=== PATIENT | male | born 1960 | race Caucasian/White ===

== ENCOUNTER 2016-02-27 18:56 | Inpatient (IN) | payer MEDICARE ==
[~2016-02-27] VITALS: Ht 195.6 cm; Wt 88.0 kg
[~2016-02-27 18:56] MED LIST: FLUO40CA PO; NICO14PA TD; OLAN15TA PO; TRAZ10TA PO
[2016-02-27] MEDS ORDERED: OLANZapine 5 MG TAB As Ordered ONE (19:37)
[2016-02-27 20:06] LABS: MEAN CORPUSCULAR HEMOGLOBIN 33.2 pg (27.0-33.0); MEAN CORPUSCULAR HGB CONC 34.5 g/dl (32.0-36.5); MEAN CORPUSCULAR VOLUME 96.3 fl (80.0-96.0); RED CELL DISTRIBUTION WIDTH 12.6 % (11.5-14.5); WHITE BLOOD COUNT 7.3 K/mm3 (4.0-10.0)
[2016-02-27 20:35] LABS: ALBUMIN 4.2 GM/DL (3.2-5.2); ALBUMIN/GLOBULIN RATIO 1.56 (1.00-1.93); ALKALINE PHOSPHATASE 83 U/L (45-117); ALT/SGPT 19 U/L (12-78); ANION GAP 9 MEQ/L (8-16); AST/SGOT 9 U/L (15-37); BILIRUBIN,DIRECT 0.1 MG/DL (0.0-0.2); BILIRUBIN,TOTAL 0.5 MG/DL (0.2-1.0); BLOOD UREA NITROGEN 13 MG/DL (7-18); CALCIUM LEVEL 9.9 MG/DL (8.5-10.1); CARBON DIOXIDE LEVEL 29 MEQ/L (21-32); CHLORIDE LEVEL 106 MEQ/L (98-107); CREATININE FOR GFR 1.14 MG/DL (0.70-1.30); GLOMERULAR FILTRATION RATE > 60.0 (>56); GLUCOSE, FASTING 87 MG/DL (70-105); SODIUM LEVEL 144 MEQ/L (136-145); TOTAL PROTEIN 6.9 GM/DL (6.4-8.2)
[2016-02-27 20:37] LABS: AMPHETAMINES LEVEL URINE POSITIVE (NEGATIVE); BENZODIAZEPINES URINE NEGATIVE (NEGATIVE); COCAINE METABOLITE URINE NEGATIVE (NEGATIVE); CONTROL LINE INT CTR LINE PRESENT; METHADONE URINE NEGATIVE (NEGATIVE); OPIATES URINE NEGATIVE (NEGATIVE); TRICYCLIC ANTIDEPRESS URINE NEGATIVE (NEGATIVE)
[2016-02-27] MEDS ORDERED: VITA400C2 PO (21:08)
[2016-02-27] MEDS ORDERED: TRAZ100T4 PO (21:08)
[2016-02-27] MEDS ORDERED: OLAN15TA PO (21:08)
[2016-02-27] MEDS ORDERED: PROZ40CA PO (21:08)
--- NOTE | 2016-02-27 21:10 | EDDOCDS ---
Physician Documentation [facility] Name: Carlos Dunlap Age: 55 yrs Sex: Male : 1960 Arrival Date: 02/27/2016 Time: 18:56 Bed OBSERVATION Private MD: No Pcp Disposition: 02/27/16 20:48 Hospitalization ordered by Sajan Peoples for Inpatient Admission. Preliminary diagnosis are Bipolar disorder, current episode hypomanic, Adverse effect of amphetamines. - Bed requested for Admit. - Status is Inpatient Admission. slm - Condition is Stable. - Problem is chronic. - Symptoms have improved. Historical: - Allergies: PENICILLINS (Hives); - Home Meds: 1. Zyprexa 30 mg at HS Oral tab (Last dose: 02/26/2016 20:00) 2. Prozac 40 mg Oral cap 1 cap once daily (Last dose: 02/27/2016 08:00) 3. trazodone 100 mg Oral tab 1 tab (Last dose: 02/26/2016 20:00) - PMHx: Bipolar disorder; Anxiety Disorder; OCD; - PSHx: Hernia repair; Cholecystectomy; - Social history: Smoking status: Patient uses tobacco products, current every day smoker. No barriers to communication noted, The patient speaks fluent Bahamian, Speaks appropriately for age, Preferred Language: Bahamian. - Family history: Not pertinent. - : The pt / caregiver states he / she is not on anticoagulants. Home medication list is obtained from the patient. - Exposure Risk Screening:: None identified. Vital Signs: 02/26 18:57 BP 161 / 73; Pulse 81; Resp 18 S; Temp 97.6(O); Pulse Ox 98% on R/A; Weight 88.45 kg / gr2 195 lbs (R); Height 6 ft. 1 in. (185.42 cm) (R); Pain 2/10; 21:02 BP 109 / 61; Pulse 67; Resp 18; Temp 97.1(O); Pulse Ox 98% ; Pain 7/10; cmb 18:57 Body Mass Index 25.73 (88.45 kg, 185.42 cm) gr2 MDM: 19:30 OLANZapine 10 mg PO now ordered. cs11 19:30 Consult PFS/PSA/Pipefitter ordered. cs11 19:30 Consult PFS/PSA/Pipefitter: Patient's case requires discussion with on-call cs11 Psychiatrist ordered. 19:30 PSA/PFS to call Nursing Salesperson [employer], to enter patient data on [place] Safe Act if patient cs11 involuntarily admitted or transferred for SI or HI ordered. 19:30 Confirm accurate psychiatric medication list and times of last dosage ordered. cs11 19:30 Detain Pt Until Medically/PFS Cleared ordered. cs11 19:32 Acetaminophen Level Ordered. EDMS 19:32 Basic Metabolic Profile Ordered. EDMS 19:32 Complete Blood Count Ordered. EDMS 19:32 Drug Eval Toxicology ED Only Ordered. EDMS 19:32 Ethyl Alcohol (ethanol) Ordered. EDMS 19:32 Liver Profile Ordered. EDMS 19:32 Salicylate Level Ordered. EDMS 19:32 Thyroid Stimulating Hormone Ordered. EDMS 20:17 Financial registration complete. mpb 20:19 [facility] Payment Agreement was scanned into [employer] and attached to record. mpb 20:38 Consult PFS/PSA/Pipefitter complete. cl 20:38 Consult PFS/PSA/Pipefitter: Patient's case requires discussion with on-call cl Psychiatrist complete. 20:38 PSA/PFS to call Nursing Salesperson [employer], to enter patient data [place] Safe [place] if patient cl involuntarily admitted or transferred for SI or HI complete. 20:48 Acetaminophen Level Reviewed. cs11 20:48 Complete Blood Count Reviewed. cs11 20:48 Drug Eval Toxicology ED Only Reviewed. cs11 20:48 Liver Profile Reviewed. cs11 20:48 Salicylate Level Reviewed. cs11 20:48 Basic Metabolic Profile Reviewed. cs11 20:48 Ethyl Alcohol (ethanol) Reviewed. cs11 20:48 Thyroid Stimulating Hormone Reviewed. cs11 20:49 BED REQUEST+ADM ordered. EDMS 20:53 Admit to [facility]: ordered. EDMS 20:56 [facility] Legal paperwork was scanned into [employer] and attached to record. ml4 Administered Medications: 19:46 Drug: OLANZapine 10 mg [olanzapine 5 mg tablet (2 tabs)] Route: PO; slm 21:00 Follow up: Response: Anxiety is improved sl Signatures: Dispatcher [employer] EDMS Antwon Perez, PSA PSA cl Serene Sifuentes, PSA PSA ml4 Anuja CrowleyRN RN lf1 Gigi Rondon, DO DO cs11 Hathaway,DbebieBRIANA hare LPN, Michael, Reg Reg mpb The chart was reviewed and I authenticate all verbal orders and agree with the evaluation and treatment provided.Attachments: 20:19 [facility] Payment Agreement mpb MTDD
--- NOTE | 2016-02-27 21:10 | EDDOCDS ---
Nurse's Notes [facility] Name: Carlos Dunlap Age: 55 yrs Sex: Male : 1960 Arrival Date: 02/27/2016 Time: 18:56 Bed OBSERVATION Private MD: No Pcp Diagnosis: Bipolar disorder, current episode hypomanic;Adverse effect of amphetamines Presentation: 02/26 19:05 Red Flag criteria, patient assessed and taken directly to a bed. Pt. taken directly to [facility] P2 with family member . Pt reports Depression and thoughts of hurting himself with recent psych admission. 19:14 Presenting complaint: Patient states: Pt reports Bipolar illness history and is lf1 "feeling very inside" states he feels "I wish I would in my sleep" . Refuses to answer when asked if he has plans to harm himself but states "I just wish the Lord would take me in my sleep". Denies HI. Mental Health Triage Level: Level 2: The patient displays active suicidal ideations. Adult Sepsis Screening: Patient has new or worsening altered mentation (1 point). Patient's respiratory rate is less than 22. Systolic blood pressure is greater than 100. Patient has a qSOFA score of 1- Negative Sepsis Screen. Mental Health Triage Level: Level 2: The patient displays active suicidal ideations. Suicide/Homicide risk assessment- The patient admits to and/or has been reported to be having suicidal ideations. Patient denies SI and HI but presents with another emotional, behavioral or other mental health complaint. The patient reports that he/she has been admitted to an inpatient mental health facility in the last 30 days. Status: Patient is not a vp client services or dependent. Transition of care: patient was not received from another setting of care. 19:14 Acuity: PHYLLIS Level 3 lf1 19:14 Method Of Arrival: Walkin/Carried/Asstd lf1 Triage Assessment: 19:14 General: Appears in no apparent distress, comfortable, Behavior is cooperative. Pain: lf1 Location: headache and lower neck pain Pain currently is 10 out of 10 on a pain scale. HIV screening NA for this visit Offered previously. Neurological: Level of Consciousness is awake, alert, Oriented to person, place, time, Moves all extremities. Gait is steady, Speech is normal, Facial symmetry appears normal. EENT: No deficits noted. Cardiovascular: Chest pain is denied. Respiratory: Respiratory effort is even, unlabored, Respiratory pattern is regular, Breath sounds are clear bilaterally. GI: Reports constipation, diarrhea, Denies nausea, vomiting. 19:30 : No deficits noted. Derm: No deficits noted. lf1 Historical: - Allergies: PENICILLINS (Hives); - Home Meds: 1. Zyprexa 30 mg at HS Oral tab (Last dose: 02/26/2016 20:00) 2. Prozac 40 mg Oral cap 1 cap once daily (Last dose: 02/27/2016 08:00) 3. trazodone 100 mg Oral tab 1 tab (Last dose: 02/26/2016 20:00) - PMHx: Bipolar disorder; Anxiety Disorder; OCD; - PSHx: Hernia repair; Cholecystectomy; - Social history: Smoking status: Patient uses tobacco products, current every day smoker. No barriers to communication noted, The patient speaks fluent Belarusian, Speaks appropriately for age, Preferred Language: Belarusian. - Family history: Not pertinent. - : The pt / caregiver states he / she is not on anticoagulants. Home medication list is obtained from the patient. - Exposure Risk Screening:: None identified. Screenin:30 Screening information is obtained from the patient. Fall risk: No risks identified. lf1 Assistance ADL's: requires no assistance with activities of daily living. Abuse/DV Screen: The patient / caregiver reports he/she is: not in a situation that causes fear, pain or injury. Nutritional screening: No deficits noted. Advance Directives: Currently, there is no health care proxy. home support is inadequate. Assessment: 19:31 General: Pt reports that he is physically able to to take care of himself but feels lf1 that he no longer has the will to do so. . 19:54 General: Appears in no apparent distress, comfortable, Behavior is appropriate for age, slm cooperative. General: security observing . Respiratory: Airway is patent Respiratory effort is even, unlabored. Derm: Skin is intact, Skin is pink, warm & dry. 20:46 General: Appears in no apparent distress, comfortable, Behavior is appropriate for age, slm cooperative, pleasant. General: pt sitting on stretcher security observing . Respiratory: Airway is patent Respiratory effort is even, unlabored. 20:59 General: Appears in no apparent distress, comfortable, Behavior is appropriate for age, slm cooperative, pleasant. Pain: Denies pain. Respiratory: Airway is patent Respiratory effort is even, unlabored. Mental Health Eval: 19:15 Status: The patient is not a vp client services or dependent. Referral cl Information: Evaluation referral is generated by the patient himself / herself. The patient was referred for evaluation because Pt with hx of Bipolar d/o and recent psych admissions to [facility], returns tonight c/o anxiety/depression, thoughts of self harm, pt.'s brother brought him to ED.. Mental Health history: anxiety, Bipolar Disorder, depression, suicide ideation ideation Mental Health Admissions: Several to [facility]. in past, most recently [facility] 02/03/16-02/17/16. Current living environment is The patient currently lives alone. 19:49 [facility] Behavioral Health: The patient is established as a patient of [facility] Behavioral cl Health. Subjective: The patients chief complaint is Pt reports worsening depression/anxiety since being d/c'd from [facility] 02/17/16, has hx of Bipolar d/o and feels unable to care for self, feeling hopeless/helpless, asked his brother to bring him to ED. Pt was to have his first appt. at [facility] today, states he called to cancel because he felt the need to come to ED for psych admission. Pt appears disheveled/unkempt, is calm and cooperative, feels he is "collapsing", adds "I don't have the desire or determination to live anymore, and it scares the hell out of me". Pt reports sleep/appetite/energy/concentration px, has no motivation, states "I just don't care anymore". Pt denies HI/AH/VH, denies any substance abuse, reports compliance with medications. Pt has multiple prior psych admissions [facility] moved to area several months ago, currently lives alone. Pt denies any suicidal plan, continues to voice passive SI, states "I wish the Lord would just take me in my sleep".. Delusions are denied. Patient's mood is anxious, dysthymic, Hallucinations are denied. Patient presents to Emergency Department with the following symptoms within the past 2 weeks: anxiety, decreased appetite, depressed mood, feelings of helplessness/hopelessness, poor concentration, sleep disturbance - erratic suicidal ideation with no plan. Substance abuse: Pt denies. Mental status exam: Patients appearance is disheveled unkempt, Patient's behavior is cooperative, Speech is normal. Affect is appropriate. Mood is dysthymic Hallucinations are denied. Appetite is erratic Memory is good. Energy level is tires easily. Content of thought is depressive. depressive Thought process is intact. Cognitive level is oriented to person, place, time and situation Patient's insight is fair. Judgement is fair. Rapport with interviewer is good. Suicidal Ideation is present with no specific plan. Homicidal ideation is not present. 20:39 Disposition: Medically cleared for disposition by Gigi Rondon DO Psychiatric Consult cl is performed by phone with Dr Sajan Peoples. 21:01 [facility] Admission Criteria: The patient is experiencing suicidal ideation. The patient cl displays symptoms of severe psychiatric disorder resulting in disordered behavior and significant interference with his / her ability to maintain self care. Severe Anxiety. The patient requires continuous observation and/or control to protect self, others or property. The patient's care requires a multi-modal treatment plan under close supervision and coordination due to the complexity and severity of the patient's symptoms. Legal Status: Patient's legal status will be Emergency admission: 39. Plan B Labs Safe Act: [place] Safe Act is not applicable because patient was registered less than 6 months ago. DSM-V Differential Diagnosis: Bipolar I Disorder (F31.0) Current or most recent episode depressed. Insurance Pre-Certification: Not Required, Medicare. Family Notification: Notification to family of patient status is not currently needed or appropriate. Awaiting: transfer to [facility]. Vital Signs: 18:57 BP 161 / 73; Pulse 81; Resp 18 S; Temp 97.6(O); Pulse Ox 98% on R/A; Weight 88.45 kg gr2 (R); Height 6 ft. 1 in. (185.42 cm) (R); Pain 2/10; 21:02 BP 109 / 61; Pulse 67; Resp 18; Temp 97.1(O); Pulse Ox 98% ; Pain 7/10; cmb 18:57 Body Mass Index 25.73 (88.45 kg, 185.42 cm) gr2 Vitals: 18:57 Log In Time: February 27, 2016 at 18:57. RN notified that patient meets Red Flag gr2 criteria. ED Course: 18:57 Patient visited by Amee Hadley. gr2 18:57 No Pcp is Private Physician. gr2 18:57 Patient moved to Waiting gr2 18:59 Patient visited by Amee Hadley. gr2 18:59 Patient moved to Pre RCE gr2 19:02 Patient moved to BHU2 gr2 19:03 Gigi Rondon DO is Attending Physician. cs11 19:03 Patient visited by Gigi Rondon DO. cs11 19:04 Patient visited by Katie Melchor. cmb 19:20 Triage Initiated lf1 19:30 Patient moved to OBSERVATION cs11 19:31 Patient visited by Anuja Crowley RN. lf1 19:39 Patient visited by Katie Melchor. cmb 19:46 Debbie Hathaway LPN is Primary Nurse. slm 19:53 No IV's were initiated during this patient's visit. No procedures done that require slm assistance. Labs drawn. (by ED staff). Sent per order to lab. Urine collected. Urine specimen sent to lab. 19:54 Patient visited by Debbie Hathaway LPN. slm 20:06 Patient visited by Katie Melchor. cmb 20:19 Patient name changed from Carlos\\S\\\\S\\Germán\\S\\ to Carlos\\S\\ \\S\\Germán. EDMS 20:19 [facility] Payment Agreement was scanned into [employer] and attached to record. mpb 20:26 Patient visited by Debbie Hathaway LPN. slm 20:34 Patient visited by Katie Melchor. cmb 20:47 Patient visited by Debbie Hathaway LPN. slm 20:47 Patient visited by Katie Melchor. cmb 20:47 Sajna Peoples is Hospitalizing Provider. cs11 20:54 Patient visited by Katie Melchor. cmb 20:56 E Legal paperwork was scanned into [employer] and attached to record. ml4 21:02 Patient visited by Katie Melchor. cmb 21:07 Patient visited by Debbie Hathaway LPN. slm 21:07 The patient / caregiver is instructed regarding the plan of care and ED course. Patient slm has correct armband on for positive identification. Placed in psych safe attire. Bed in low position. Security observing. Administered Medications: 19:46 Drug: OLANZapine 10 mg [olanzapine 5 mg tablet (2 tabs)] Route: PO; slm 21:00 Follow up: Response: Anxiety is improved [facility] Attachments: 20:56 [facility] Legal paperwork ml4 Order Results: Lab Order: Acetaminophen Level; SPEC'M 02/27/16 19:52 Test: ACETAMINOPHEN LEVEL; Value: < 2.0; Range: 10.0-30.0; Abnormal: Below low normal; Units: UG/ML; Status: F Lab Order: Basic Metabolic Profile; SPEC'M 02/27/16 19:52 Test: GLUCOSE, FASTING; Value: 87; Range: 70-105; Units: MG/DL; Status: F Test: BLOOD UREA NITROGEN; Value: 13; Range: 7-18; Units: MG/DL; Status: F Test: CREATININE FOR GFR; Value: 1.14; Range: 0.70-1.30; Units: MG/DL; Status: F Test: GLOMERULAR FILTRATION RATE; Value: > 60.0; Range: >56; Status: F Test: SODIUM LEVEL; Value: 144; Range: 136-145; Units: MEQ/L; Status: F Test: POTASSIUM SERUM; Value: 4.0; Range: 3.5-5.1; Units: MEQ/L; Status: F Test: CHLORIDE LEVEL; Value: 106; Range: 98-107; Units: MEQ/L; Status: F Test: CARBON DIOXIDE LEVEL; Value: 29; Range: 21-32; Units: MEQ/L; Status: F Test: ANION GAP; Value: 9; Range: 8-16; Units: MEQ/L; Status: F Test: CALCIUM LEVEL; Value: 9.9; Range: 8.5-10.1; Units: MG/DL; Status: F Test Note: ; Units are mL/min/1.73 m2 Chronic Kidney Disease Staging per NKF: Stage I & II GFR >=60 Normal to Mildly Decreased Stage III GFR 30-59 Moderately Decreased Stage IV GFR 15-29 Severely Decreased Stage V GFR <15 Very Little GFR Left ESRD GFR <15 on DOPER Lab Order: Complete Blood Count; SPEC'M 02/27/16 19:52 Test: WHITE BLOOD COUNT; Value: 7.3; Range: 4.0-10.0; Units: K/mm3; Status: F Test: RED BLOOD COUNT; Value: 4.56; Range: 4.30-6.10; Units: M/mm3; Status: F Test: HEMOGLOBIN; Value: 15.1; Range: 14.0-18.0; Units: g/dl; Status: F Test: HEMATOCRIT; Value: 43.9; Range: 42.0-52.0; Units: %; Status: F Test: MEAN CORPUSCULAR VOLUME; Value: 96.3; Range: 80.0-96.0; Abnormal: Above high normal; Units: fl; Status: F Test: MEAN CORPUSCULAR HEMOGLOBIN; Value: 33.2; Range: 27.0-33.0; Abnormal: Above high normal; Units: pg; Status: F Test: MEAN CORPUSCULAR HGB CONC; Value: 34.5; Range: 32.0-36.5; Units: g/dl; Status: F Test: RED CELL DISTRIBUTION WIDTH; Value: 12.6; Range: 11.5-14.5; Units: %; Status: F Test: PLATELET COUNT, AUTOMATED; Value: 195; Range: 150-450; Units: k/mm3; Status: F Lab Order: Drug Eval Toxicology ED Only; SPEC'M 02/27/16 19:52 Test: AMPHETAMINES LEVEL URINE; Value: POSITIVE; Range: NEGATIVE; Abnormal: Above high normal; Status: F Test: BARBITURATES URINE; Value: NEGATIVE; Range: NEGATIVE; Status: F Test: BENZODIAZEPINES URINE; Value: NEGATIVE; Range: NEGATIVE; Status: F Test: CANNABINOIDS URINE; Value: NEGATIVE; Range: NEGATIVE; Status: F Test: COCAINE METABOLITE URINE; Value: NEGATIVE; Range: NEGATIVE; Status: F Test: METHADONE URINE; Value: NEGATIVE; Range: NEGATIVE; Status: F Test: OPIATES URINE; Value: NEGATIVE; Range: NEGATIVE; Status: F Test: TRICYCLIC ANTIDEPRESS URINE; Value: NEGATIVE; Range: NEGATIVE; Status: F Test Note: ; ALL PRESUMPTIVE POSITIVE FINDINGS ARE UNCONFIRMED NORMAL VALUES THRESHOLD IN NG/ML AMPHETAMINES 1000 METHAMPHETAMINES 1000 BARBITURATES 300 BENZODIAZEPINES 300 CANNABINOIDS (THC) 50 COCAINE METABOLITE 300 METHADONE 300 OPIATES 300 PHENCYCLIDINE 25 TRICYCLIC ANTIDEPRESSANTS 1000 RESULTS ARE FOR MEDICAL PURPOSES ONLY. ALL URINE SPECIMENS WILL BE SAVED FOR 3 DAYS. IF CONFIRMATION OF A PRESUMPTIVE POSTIVE SCREEN RESULT IS DESIRED, CALL CHEMISTRY ([phone]) AND REQUEST URINE TO BE SENT TO REFERENCE LAB. FOR A LIST OF CLOSELY RELATED COMPOUNDS PLEASE CALL THE LAB. Lab Order: Ethyl Alcohol (ethanol); SPEC'M 02/27/16 19:52 Test: ETHYL ALCOHOL (ETHANOL); Value: 0.003; Range: 0.000-0.010; Units: %; Status: F Lab Order: Liver Profile; SPEC'M 02/27/16 19:52 Test: AST/SGOT; Value: 9; Range: 15-37; Abnormal: Below low normal; Units: U/L; Status: F Test: ALT/SGPT; Value: 19; Range: 12-78; Units: U/L; Status: F Test: ALKALINE PHOSPHATASE; Value: 83; Range: 45-117; Units: U/L; Status: F Test: BILIRUBIN,TOTAL; Value: 0.5; Range: 0.2-1.0; Units: MG/DL; Status: F Test: BILIRUBIN,DIRECT; Value: 0.1; Range: 0.0-0.2; Units: MG/DL; Status: F Test: TOTAL PROTEIN; Value: 6.9; Range: 6.4-8.2; Units: GM/DL; Status: F Test: ALBUMIN; Value: 4.2; Range: 3.2-5.2; Units: GM/DL; Status: F Test: ALBUMIN/GLOBULIN RATIO; Value: 1.56; Range: 1.00-1.93; Status: F Lab Order: Salicylate Level; SPEC'M 02/27/16 19:52 Test: SALICYLATE LEVEL; Value: 3.2; Range: 5.0-30.0; Abnormal: Below low normal; Units: MG/DL; Status: F Lab Order: Thyroid Stimulating Hormone; SPEC'M 02/27/16 19:52 Test: THYROID STIMULATING HORMONE; Value: 0.515; Range: 0.358-3.740; Units: uIU/ML; Status: F Outcome: 20:48 Decision to Hospitalize by Provider. cs11 21:06 Discharge Assessment: Patient awake, alert and oriented x 3. No cognitive and/or slm functional deficits noted. Patient verbalized understanding of disposition instructions. patient administered narcotics - no. The following High Risk Discharge criteria are identified: None. Admitted to Psych accompanied by tech, via wheelchair, with chart. Condition: stable. No special radiology studies were completed. Property removed, inventory done, secured in belongings bag- placed in locked locker. 21:08 Patient left the ED. slm Signatures: Dispatcher [employer] EDMS Antwon Perez, PSA PSA cl Serene Sifuentes, PSA PSA ml4 nAuja Crowley,RN RN lf1 Katie Melchor cmGigi Kim, DO cs11 Amee Hadley gr2 Debbie Hathaway,BRIANA SOCIOLOGY PROFESSOR slm Omer Hernandez, Reg Reg mpb STEVE
[2016-02-27 21:19] VITALS: BP 155/73
[2016-02-27] MEDS ORDERED: MOM 30ML SUSPENSION UDC PO PRN (21:45)
[2016-02-27] MEDS ORDERED: ACETAMINOPHEN TAB 650MG DOSE (2X325MG) PO PRN (21:45)
[2016-02-27] MEDS ORDERED: MAALOX 30 ML SUSP *UDC PO PRN (21:45)
[2016-02-28] MEDS: FLUoxetine 20 MG CAP PO SCH (08:41)
--- NOTE | 2016-02-28 11:01 | HPEPDOC ---
Medical History and Physical Date of Admission Feb 27, 2016 at 20:14 History and Physical PCP: [facility] ATTENDING: Dr. Gio Virgen HPI: 55yoM admitted to [facility] for Bipolar Disorder, being medically examined today. No acute medical complaints today. Denies any fevers, chills, weakness, fatigue, VIERA, CP, SOB, cough, palpitations, abdominal pain, N/V/D or changes in bowel or bladder habits. PMHx: Anxiety/depression Bipolar disorder PSHX: Cholecystectomy Bilateral hernia repair SOCHX: Resides in: [place] Marital Status: Kids: 2 Employment: Disabled Tobacco use: pipe daily on and off. ETOH: 3-12 packs per month Illicit Drugs: Denies IV Drug Use: Denies Tattoos done unprofessionally: Denies FAMHX: Mother: , [place] Father: , aneurysm Siblings: Brother healthy, sisters estranged Children: Alive, estranged Unexpected deaths due to medical reasons: None. ROS: As noted in HPI, otherwise 11pt ROS of systems reviewed and remarkable for fungal changes in nails hands and feet. PE: GEN: 55 yo M, appears older than stated age. Well-nourished, well developed. No acute distress. Alert and oriented x 3. Pleasant, rambling speech. HEENT: Normocephalic, atraumatic. Pupils are equal, round, and reactive to light. Extraocular movements are intact. No nystagmus appreciated. Sclera are nonicteric. Conjunctiva without injection. Nose midline. Nasal turbinates without bogginess. EACs both patent BL. TMs both visualized and garcia with good cone of light, no bulging or erythema. No facial asymmetry. Moist mucous membranes. Dentition fair. Pharynx pink and moist, no cobblestoning. Neck supple , trachea midline. No lymphadenopathy or thyromegaly appreciated. CHEST: Regular rate and rhythm, +S1, +S2 LUNGS: Clear to auscultation bilaterally. No wheezes, rales, or rhonchi. Breathing appears symmetric and easy. Patient is speaking in full sentences. No accessory muscle use. ABD: Round, soft, non-tender, non-distended. +Bowel sounds throughout. No rebound or guarding. No costovertebral angle tenderness. EXT: Pulses 2+ bilaterally dorsalis pedis and radial. No lower extremity edema appreciated. SKIN: [place], dry, warm. Capillary refill <2sec. tinea cruris groin folds B/L. NEURO: Alert and oriented x 3. Cranial nerves III-XII are intact. No focal deficits appreciated. EK01/25/16. Sinus rhythm, 68 bpm, possible IWMI indeterminate age, no prior. A&P: 55yoM admitted to [facility] for Bipolar Disorder 1. Psych. Plan per Psychiatry. Obtain baseline EKG to assure the safety of psychiatric medications as they can prolong the QT interval. 2. Nicotine dependence. Patch available as needed. 3. Follow up. No Primary Care Provider. Will attempt to establish PCP on discharge. 4. Tinea Cruris. Apply miconazole powder b/l groin folds. 5. Observer present throughout exam, [employer]. Vital Signs Vital Signs Label Value Date Time Patient Temperature 96.4 degrees F 02/27/162118 Temperature Source Tympanic 02/27/162118 Pulse 77 02/27/162118 Respiratory Rate 20 bpm 02/27/162118 Blood Pressure Assessment 155/73 (100) 02/27/162118 Item Value Date Time Oxygen Delivery Method Room Air 02/27/162118 Laboratory Data Labs 24H Laboratory Tests 2 02/27/16 19:52: Acetaminophen Level < 2.0L, Aspartate Amino Transf (AST/SGOT) 9L, Alanine Aminotransferase (ALT/SGPT) 19, Alkaline Phosphatase 83, Total Bilirubin 0.5, Direct Bilirubin 0.1, Albumin 4.2, Albumin/Globulin Ratio 1.56, Anion Gap 9, Calcium Level 9.9, Ethyl Alcohol Level 0.003, Glomerular Filtration Rate > 60.0 , Salicylates Level 3.2L, Thyroid Stimulating Hormone (TSH) 0.515, Total Protein 6.9, Urine Amphetamine Level POSITIVEH, Urine Benzodiazepines Screen NEGATIVE, Urine Cannabinoids NEGATIVE, Urine Cocaine Metabolite NEGATIVE, Urine Opiates Screen NEGATIVE, Urine Barbiturates, Qualitative NEGATIVE, Urine Methadone Screen NEGATIVE, Urine Tricyclic Antidepressants NEGATIVE CBC/BMP Laboratory Tests 02/27/16 19:52 Red Blood Count 4.56, Mean Corpuscular Volume 96.3 H, Mean Corpuscular Hemoglobin 33.2 H, Mean Corpuscular Hemoglobin Concent 34.5, Red Cell Distribution Width 12.6 Home Medications Scheduled Fluoxetine HCl (Prozac) 40 Mg Cap 40 MG PO DAILY Olanzapine (Olanzapine) 15 Mg Tab 30 MG PO QHS Trazodone HCl (Trazodone HCl) 100 Mg Tab 100 MG PO QHS Vitamin E (Vitamin E) 400 Unit Cap 1,600 UNIT PO DAILY Allergies Coded Allergies: Penicillins (Unverified Allergy, Unknown, ANAPHYLAXIS, 01/24/16) Shellfish Allergy (Unverified Allergy, Unknown, ANAPHYLAXIS, 01/24/16) Aminta Cuellar Feb 28, 2016 11:01
--- NOTE | 2016-02-28 11:37 | HPEPDOC ---
[facility] History & Physical History and Physical DATE OF ADMISSION: Feb 27, 2016 at 20:14 CHIEF COMPLAINT: ""I was here 01/23-02/16, I left a little too soon, I guess"; " I feel very inside, I don't have the will to carry on ", "I'm worried about how I am going to make it (in general)". HISTORY OF THE PRESENT ILLNESS: Patient is a 55-year-old male. Patient states he does not know what changed for him. Patient does not know any specific triggers. Patient was seen for a January admission. Prior to that his last admission was in 2014, August into September for depression and anxiety. Patient states "nothing in particular that is bringing it out ". Patient does admit that he had not been on his meds for 8 months prior to the January admission. Patient cannot give any clear reason for this. Patient answers with I don't know or I don't remember PAST PSYCHIATRIC HISTORY: Patient states he was first diagnosed with bipolar disorder in the fall of 1993 when he was about 33 years old. Patient states he did notice that he started having trouble in his mid 20s. Rates "I had trouble keeping jobs ". 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 Patient does not offer or remember specific treatments or medications during this period of time. MEDICAL HISTORY: Patient noted to have fungal changes in his nails of his hands and feet. Patient also noted to have poor dentition and states he was seen by a dentist a year ago. Patient states he had seen his primary care physician this past week. Prior to that incident been about a year. Patient states he had a double hernia repair, right after he was born. states he had a single hernia repair in 1992. Patient states he had another double hernia repair in 2013. These were all inguinal hernia repairs. Patient states he had his gallbladder removed and 2008. Patient states he uses quite tobacco to roll cigarettes. Patient states he has smoked at least 20 cigarettes a day for 41 years HOME MEDICATIONS: Please see below. ALLERGIES: Please see below. FAMILY PSYCHIATRIC HISTORY: Patient states a paternal cousin is diagnosed with bipolar disorder. Patient states that both of his sons have been diagnosed with bipolar disorder. Patient denies any other family psychiatric or mental health history. SOCIAL HISTORY: Patient is a father of 2 sons. Patient states he does not know where they are and they are estranged from him at this time. Patient states he would like to make contact with both of his sons once he is "on his feet and has his act together". Patient states he recently has been put into housing prior to that he is been homeless off and on. Patient also states he is disabled because of his bipolar disease. Patient states he first got disability in February 2014. 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 SUBSTANCE ABUSE HISTORY: Patient states he is not a drinker. Patient denies use of any kind of drugs. In prior records, it is documented that the patient drinks 3-12 packs a month. Patient denies this and says it's wrong. Patient states he has not had a drink in the last 8 months. LEGAL HISTORY: Patient denies. VITAL SIGNS: Blood pressure 132/77, pulse 72, respirations 20, temperature 96.7 LABORATORY DATA: Please see below. P a ordered an EKG for this patient on admission, significant labs. His SGOT is low, patient UDS on admission was positive for amphetamines. Patient states he has never used amphetamines and does not know why this is positive. MENTAL STATUS EXAMINATION: Patient is a 55 year old male, who is tall, unkempt, unshaven with a thin build. Of note, patient smells of alcohol. Speech: Is is of normal rate and volume. Patient is articulate, coherent and spontaneous. Thought processes: Clear, somewhat goal directed. Thought content: Logical, no evidence of paranoia. Abstract reasoning: Adequate. Computation: Adequate. Associations: Intact. Abnormal or psychotic thoughts: Patient denies hallucinations, delusions, obsessions, compulsions, paranoia, homicidal or suicidal ideation. Patient is fixated on being very inside, feeling hopeless. Patient states he is depressed when he is by himself. Judgment: Poor. Insight: Poor. Oriented to: Person, place, time and surroundings. Recent and Remote Memory: Patient states "I have a lot of problems with my short-term memory". Attention Span and Concentration: Poor. Patient continually interrupts this provider and distracts himself. Patient states he can't focus or concentrate due to his increased anxiety and depression. Language: Normal. Fund of knowledge: Adequate. Mood: "Not very good ", depressed, anxious. Affect: Appropriate, Depressed. ASSESSMENT: Patient does not let providers speak without continually interrupting patient does not directly answer provider questions. Patient is resistant to any suggestions offered. Patient states to provider that he probably didn't go home prematurely when he was here last. Patient states he is anxious, but he basically came here to rest. Patient also states that he knows that's what he needs to help his depression and anxiety is to be able to rest. Patient does not feel that anyone no sound to treat his depression or anxiety. Patient continually repeats that he is the only one to make himself feel better. PROBLEM LIST: 1. Depression/anxiety. 2. Self-care deficit 3. Ineffective coping. DIAGNOSES: 1. Major depressive disorder. 2. Anxiety. MANAGEMENT PLAN: Patient to continue Zyprexa 30 mg by mouth daily at bedtime, fluoxetine 40 mg by mouth every morning, trazodone 100 mg by mouth daily at bedtime when necessary. Patient to attend groups and participate in unit programming and activities to develop effective coping strategies. Patient to be engaged in discharge planning process to ensure safe and effective discharge plan patient to follow-up with PCP upon discharge. Patient to start therapy and schedule appointments upon discharge. ESTIMATED LENGTH OF STAY: 5-7 days. Laboratory Data 24H Labs Laboratory Tests 2 02/27/16 19:52: Acetaminophen Level < 2.0L, Aspartate Amino Transf (AST/SGOT) 9L, Alanine Aminotransferase (ALT/SGPT) 19, Alkaline Phosphatase 83, Total Bilirubin 0.5, Direct Bilirubin 0.1, Albumin 4.2, Albumin/Globulin Ratio 1.56, Anion Gap 9, Calcium Level 9.9, Ethyl Alcohol Level 0.003, Glomerular Filtration Rate > 60.0 , Salicylates Level 3.2L, Thyroid Stimulating Hormone (TSH) 0.515, Total Protein 6.9, Urine Amphetamine Level POSITIVEH, Urine Benzodiazepines Screen NEGATIVE, Urine Cannabinoids NEGATIVE, Urine Cocaine Metabolite NEGATIVE, Urine Opiates Screen NEGATIVE, Urine Barbiturates, Qualitative NEGATIVE, Urine Methadone Screen NEGATIVE, Urine Tricyclic Antidepressants NEGATIVE CBC/BMP Laboratory Tests 02/27/16 19:52 Red Blood Count 4.56, Mean Corpuscular Volume 96.3 H, Mean Corpuscular Hemoglobin 33.2 H, Mean Corpuscular Hemoglobin Concent 34.5, Red Cell Distribution Width 12.6 Medications Scheduled Fluoxetine HCl (Prozac) 40 Mg Cap 40 MG PO DAILY (Reported) Olanzapine (Olanzapine) 15 Mg Tab 30 MG PO QHS (Reported) Trazodone HCl (Trazodone HCl) 100 Mg Tab 100 MG PO QHS (Reported) Vitamin E (Vitamin E) 400 Unit Cap 1,600 UNIT PO DAILY (Reported) Allergies Coded Allergies: Penicillins (Unverified Allergy, Unknown, ANAPHYLAXIS, 01/24/16) Shellfish Allergy (Unverified Allergy, Unknown, ANAPHYLAXIS, 01/24/16) MYKE YUNG NP Feb 28, 2016 11:37 EMMANUEL MARIE MD Mar 01, 2016 12:33
[2016-02-28] MEDS: MICONAZOLE 2 % POWDER (DESENEX) TOP SCH ×2 (12:46→20:04)
[2016-02-28 18:00] VITALS: BP 109/56
[2016-02-28] MEDS: OLANZapine 10 MG TAB PO SCH (20:04)
[2016-02-28] MEDS: traZODone 50 MG TAB PO PRN (20:05)
[2016-02-29 06:35] VITALS: BP 127/63
[2016-02-29] MEDS: MICONAZOLE 2 % POWDER (DESENEX) TOP SCH ×2 (08:52→20:53)
[2016-02-29] MEDS: FLUoxetine 20 MG CAP PO SCH (08:53)
[2016-02-29 18:00] VITALS: BP 100/56
--- NOTE | 2016-02-29 19:57 | IPNPDOC ---
[facility] Progress Note Progress Note DATE: 02/29/16 HISTORY OF THE PRESENT ILLNESS: Patient is a 55-year-old male. Patient states he does not know what changed for him. Patient does not know any specific triggers. Patient was seen for a January admission. Prior to that his last admission was in 2014, August into September for depression and anxiety. Patient states "nothing in particular that is bringing it out ". Patient does admit that he had not been on his meds for 8 months prior to the January admission. Patient cannot give any clear reason for this. Patient answers with I don't know or I don't remember PAST PSYCHIATRIC HISTORY: Patient states he was first diagnosed with bipolar disorder in the fall of 1993 when he was about 33 years old. Patient states he did notice that he started having trouble in his mid 20s. Rates "I had trouble keeping jobs ". 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 Patient does not offer or remember specific treatments or medications during this period of time. VITAL SIGNS: See below. NEW TEST RESULTS: See below. Pt. was ordered an EKG on admission, significant labs are his SGOT is low, patient UDS on admission was positive for amphetamines. Patient states he has never used amphetamines and does not know why this is positive. CURRENT MEDICATIONS: See below. Zyprexa 30 mg by mouth daily at bedtime, fluoxetine 40 mg by mouth every morning, trazodone 100 mg by mouth daily at bedtime when necessary for sleep. MENTAL STATUS EXAMINATION: Patient is a 55 year old male, looks older than his stated age, who is tall, unkempt, unshaven with a thin build. Of note, patient smelled of alcohol on admission. Patient is confrontational, demanding argumentative. Patient is fixated on not being able to go in his room to sleep when he wants to. Speech: Is is of normal rate and volume. Patient is circumstantial, articulate, coherent and spontaneous. Thought processes: Clear, goal directed to sleep. Thought content: Rational, logical, no evidence of paranoia. Abstract reasoning: Adequate. Computation: Adequate. Associations: Intact. Abnormal or psychotic thoughts: Patient denies hallucinations, delusions, obsessions, compulsions, paranoia, homicidal or suicidal ideation. Patient is fixated on being very inside, feeling hopeless. Patient states he is depressed when he is by himself. Patient continually derails conversation, trying to get more sleep time and time in his room. Judgment: Poor. Insight: Poor. Oriented to: Person, place, time and surroundings. Recent and Remote Memory: Patient states "not good". Attention Span and Concentration: Poor. Patient continually interrupts provider , goes off on tangents. Patient states he can't focus or concentrate, has confusion and is disoriented due to his increased anxiety and depression. Language: Normal. Fund of knowledge: Adequate. Mood: "Not good, I had trouble trying to relax as I needed to lay down to relax ", depressed, anxious. Affect: Appropriate, reactive, irrational, agitated, manic. Patient states "you don't need to be With me, you need to be understanding ". Patient further states "locking me out of my room isn't working, ". DIAGNOSES: Major depressive disorder, Anxiety. ASSESSMENT: Patient does not let provider speak without continually interrupting , patient does not directly answer provider questions. Patient is resistant to any suggestions offered. Patient states to provider that he probably did go home prematurely when he was here last. Patient states he is anxious, but he basically came here to rest. Patient also states that he knows that's what he needs to help his depression and anxiety is to be able to rest. Patient does not feel that anyone no sound to treat his depression or anxiety. Patient continually repeats that he is the only one to make himself feel better. Patient continues to be fixated on not being able to be in his room whenever he wants to be. Patient is agitated during assessment. At times. Patient states provider is not on the same page, nor does provider have his best interest at heart. Patient states that provider needs to be more compassionate and understand how he feels. Patient continues to ramble on with the relevant information. Patient basically is telling provider that he had no intention of participating or doing anything other than sleep when he was admitted this time. Discussed with patient. Strategies for improving his depression, anger and anxiety. Reviewed with patient appropriate behavior on this inpatient unit. Reviewed with patient expectations that he will participate with unit programming and activities to aid his depression and anxiety. MANAGEMENT PLAN: Patient to continue medications as above. Maintain safety precautions. Patient to attend groups and participate in unit unit programming to develop effective coping strategies. And his charge planning process to ensure safe and effective discharge plan. Patient to follow-up with PCP upon discharge. Patient to start therapy upon discharge. Patient to not be in his room unless it is quiet time or bedtime. Vital Signs/I&O Vital Signs Date Time Temp Pulse Resp B/P Pulse Ox O2 Delivery O2 Flow Rate FiO2 02/29/16 18:00 97.2 81 16 100/56 02/29/16 15:56 Room Air Current Medications Current Medications Acetaminophen (Tylenol) 650 mg Q6HP PRN PO HEADACHE or DISCOMFORT; Start at 21:45; Stop 03/28/16 at 21:44 Al Hydrox/Mg Hydrox/Simethicone (Mylanta) 30 ml Q4HP PRN PO HEARTBURN/ INDIGESTION; Start 02/27/16 at 21:45; Stop 03/28/16 at 21:44 Fluoxetine HCl (PROzac) 40 mg QAM PO Last administered on 02/29/16 08:53; Start 02/28/16 at 09:00; Stop 03/29/16 at 08:59 Home Med (Med Rec Complete!) ASDIRECTED XX ; Start 02/27/16 at 21:15; Stop at 21:20; Status DC Magnesium Hydroxide (Milk Of Magnesia) 30 ml DAILYPRN PRN PO CONSTIPATION; Start 02/27/16 at 21:45; Stop 03/28/16 at 21:44 Miconazole Nitrate (Lotrimin Af 2%) 1 dose BID TOP Last administered on 08:52; Start 02/28/16 at 09:00; Stop 03/29/16 at 08:59 Olanzapine (ZyPREXA) 10 mg STK-MED ONCE As Ordered ; Start 02/27/16 at 19:37; Stop 02/27/16 at 19:38; Status DC Olanzapine (ZyPREXA) 30 mg QHS PO Last administered on 02/28/16 20:04; Start 02/28/16 at 21:00; Stop 03/29/16 at 20:59 Trazodone HCl (Desyrel) 100 mg QHSP PRN PO INSOMNIA Last administered on 20:05; Start 02/27/16 at 21:45; Stop 03/28/16 at 21:44 Allergies Coded Allergies: Penicillins (Unverified Allergy, Unknown, ANAPHYLAXIS, 01/24/16) Shellfish Allergy (Unverified Allergy, Unknown, ANAPHYLAXIS, 01/24/16) MYKE YUNG NP Feb 29, 2016 19:57 EMMANUEL MARIE MD Mar 01, 2016 12:51
[2016-02-29] MEDS: OLANZapine 10 MG TAB PO SCH (20:54)
[2016-02-29] MEDS: traZODone 50 MG TAB PO PRN (20:54)
--- NOTE | 2016-02-29 22:10 | EDDOCDS ---
Physician Documentation [facility] Name: Carlos Dunlap Age: 55 yrs Sex: Male : 1960 Arrival Date: 02/27/2016 Time: 18:56 Bed OBSERVATION Private MD: No Pcp Disposition: 02/27/16 20:48 Hospitalization ordered by Sajan Peoples for Inpatient Admission. Preliminary diagnosis are Bipolar disorder, current episode hypomanic, Adverse effect of amphetamines. - Bed requested for Admit. - Status is Inpatient Admission. slm - Condition is Stable. - Problem is chronic. - Symptoms have improved. Historical: - Allergies: PENICILLINS (Hives); - Home Meds: 1. Zyprexa 30 mg at HS Oral tab (Last dose: 02/26/2016 20:00) 2. Prozac 40 mg Oral cap 1 cap once daily (Last dose: 02/27/2016 08:00) 3. trazodone 100 mg Oral tab 1 tab (Last dose: 02/26/2016 20:00) - PMHx: Bipolar disorder; Anxiety Disorder; OCD; - PSHx: Hernia repair; Cholecystectomy; - Social history: Smoking status: Patient uses tobacco products, current every day smoker. No barriers to communication noted, The patient speaks fluent [place], Speaks appropriately for age, Preferred Language: [place]ese. - Family history: Not pertinent. - : The pt / caregiver states he / she is not on anticoagulants. Home medication list is obtained from the patient. - Exposure Risk Screening:: None identified. Vital Signs: 02/26 18:57 BP 161 / 73; Pulse 81; Resp 18 S; Temp 97.6(O); Pulse Ox 98% on R/A; Weight 88.45 kg / gr2 195 lbs (R); Height 6 ft. 1 in. (185.42 cm) (R); Pain 2/10; 21:02 BP 109 / 61; Pulse 67; Resp 18; Temp 97.1(O); Pulse Ox 98% ; Pain 7/10; cmb 18:57 Body Mass Index 25.73 (88.45 kg, 185.42 cm) gr2 MDM: 19:30 OLANZapine 10 mg PO now ordered. cs11 19:30 Consult PFS/PSA/Nutrition Instructor ordered. cs11 19:30 Consult PFS/PSA/Nutrition Instructor: Patient's case requires discussion with on-call cs11 Psychiatrist ordered. 19:30 PSA/PFS to call Nursing Financial Sales Associate, to enter patient data on [place] Safe Act if patient cs11 involuntarily admitted or transferred for SI or HI ordered. 19:30 Confirm accurate psychiatric medication list and times of last dosage ordered. cs11 19:30 Detain Pt Until Medically/PFS Cleared ordered. cs11 19:32 Acetaminophen Level Ordered. EDMS 19:32 Basic Metabolic Profile Ordered. EDMS 19:32 Complete Blood Count Ordered. EDMS 19:32 Drug Eval Toxicology ED Only Ordered. EDMS 19:32 Ethyl Alcohol (ethanol) Ordered. EDMS 19:32 Liver Profile Ordered. EDMS 19:32 Salicylate Level Ordered. EDMS 19:32 Thyroid Stimulating Hormone Ordered. EDMS 20:17 Financial registration complete. mpb 20:19 [facility] Payment Agreement was scanned into [employer] and attached to record. mpb 20:38 Consult PFS/PSA/Nutrition Instructor complete. cl 20:38 Consult PFS/PSA/Nutrition Instructor: Patient's case requires discussion with on-call cl Psychiatrist complete. 20:38 PSA/PFS to call Nursing Financial Sales Associate, to enter patient data on [place] Safe [place] if patient cl involuntarily admitted or transferred for SI or HI complete. 20:48 Acetaminophen Level Reviewed. cs11 20:48 Complete Blood Count Reviewed. cs11 20:48 Drug Eval Toxicology ED Only Reviewed. cs11 20:48 Liver Profile Reviewed. cs11 20:48 Salicylate Level Reviewed. cs11 20:48 Basic Metabolic Profile Reviewed. cs11 20:48 Ethyl Alcohol (ethanol) Reviewed. cs11 20:48 Thyroid Stimulating Hormone Reviewed. cs11 20:49 BED REQUEST+ADM ordered. EDMS 20:53 Admit to [facility]: ordered. EDMS 20:56 [facility] Legal paperwork was scanned into [employer] and attached to record. ml4 02/27 03:50 T-Sheet-- Draft Copy was scanned into [employer] and attached to record. hs2 Administered Medications: 02/26 19:46 Drug: OLANZapine 10 mg [olanzapine 5 mg tablet (2 tabs)] Route: PO; slm 21:00 Follow up: Response: Anxiety is improved sl Signatures: Dispatcher [employer] EDMS Antwon Perez, SKYE PSA cl Serene Sifuentes, PSA PSA ml4 Anuja Crowley,RN RN lf1 Gigi Rondon, DO DO cs11 Debbie Hathaway,EQUIPMENT TECH EQUIPMENT TECH slm Omer Hernandez, Reg Reg mpb Radha Joya, Reg Reg hs2 The chart was reviewed and I authenticate all verbal orders and agree with the evaluation and treatment provided.Attachments: 20:19 [facility] Payment Agreement mp 02/27 03:50 T-Sheet-- Draft Copy hs2 Chart Complete MTDD
--- NOTE | 2016-02-29 22:10 | EDDOCDS ---
Physician Documentation [facility] Name: Carlos Dunlap Age: 55 yrs Sex: Male : 1960 Arrival Date: 02/27/2016 Time: 18:56 Bed OBSERVATION Private MD: No Pcp Disposition: 02/27/16 20:48 Hospitalization ordered by Sajan Peoples for Inpatient Admission. Preliminary diagnosis are Bipolar disorder, current episode hypomanic, Adverse effect of amphetamines. - Bed requested for Admit. - Status is Inpatient Admission. slm - Condition is Stable. - Problem is chronic. - Symptoms have improved. Historical: - Allergies: PENICILLINS (Hives); - Home Meds: 1. Zyprexa 30 mg at HS Oral tab (Last dose: 02/26/2016 20:00) 2. Prozac 40 mg Oral cap 1 cap once daily (Last dose: 02/27/2016 08:00) 3. trazodone 100 mg Oral tab 1 tab (Last dose: 02/26/2016 20:00) - PMHx: Bipolar disorder; Anxiety Disorder; OCD; - PSHx: Hernia repair; Cholecystectomy; - Social history: Smoking status: Patient uses tobacco products, current every day smoker. No barriers to communication noted, The patient speaks fluent French, Speaks appropriately for age, Preferred Language: French. - Family history: Not pertinent. - : The pt / caregiver states he / she is not on anticoagulants. Home medication list is obtained from the patient. - Exposure Risk Screening:: None identified. Vital Signs: 02/26 18:57 BP 161 / 73; Pulse 81; Resp 18 S; Temp 97.6(O); Pulse Ox 98% on R/A; Weight 88.45 kg / gr2 195 lbs (R); Height 6 ft. 1 in. (185.42 cm) (R); Pain 2/10; 21:02 BP 109 / 61; Pulse 67; Resp 18; Temp 97.1(O); Pulse Ox 98% ; Pain 7/10; cmb 18:57 Body Mass Index 25.73 (88.45 kg, 185.42 cm) gr2 MDM: 19:30 OLANZapine 10 mg PO now ordered. cs11 19:30 Consult PFS/PSA/Loop Tender ordered. cs11 19:30 Consult PFS/PSA/Loop Tender: Patient's case requires discussion with on-call cs11 Psychiatrist ordered. 19:30 PSA/PFS to call Nursing Rheumatologist, to enter patient data on [place] Safe Act if patient cs11 involuntarily admitted or transferred for SI or HI ordered. 19:30 Confirm accurate psychiatric medication list and times of last dosage ordered. cs11 19:30 Detain Pt Until Medically/PFS Cleared ordered. cs11 19:32 Acetaminophen Level Ordered. EDMS 19:32 Basic Metabolic Profile Ordered. EDMS 19:32 Complete Blood Count Ordered. EDMS 19:32 Drug Eval Toxicology ED Only Ordered. EDMS 19:32 Ethyl Alcohol (ethanol) Ordered. EDMS 19:32 Liver Profile Ordered. EDMS 19:32 Salicylate Level Ordered. EDMS 19:32 Thyroid Stimulating Hormone Ordered. EDMS 20:17 Financial registration complete. mpb 20:19 [facility] Payment Agreement was scanned into [employer] and attached to record. mpb 20:38 Consult PFS/PSA/Loop Tender complete. cl 20:38 Consult PFS/PSA/Loop Tender: Patient's case requires discussion with on-call cl Psychiatrist complete. 20:38 PSA/PFS to call Nursing Rheumatologist, to enter patient data [place] Safe [place] if patient cl involuntarily admitted or transferred for SI or HI complete. 20:48 Acetaminophen Level Reviewed. cs11 20:48 Complete Blood Count Reviewed. cs11 20:48 Drug Eval Toxicology ED Only Reviewed. cs11 20:48 Liver Profile Reviewed. cs11 20:48 Salicylate Level Reviewed. cs11 20:48 Basic Metabolic Profile Reviewed. cs11 20:48 Ethyl Alcohol (ethanol) Reviewed. cs11 20:48 Thyroid Stimulating Hormone Reviewed. cs11 20:49 BED REQUEST+ADM ordered. EDMS 20:53 Admit to [facility]: ordered. EDMS 20:56 [facility] Legal paperwork was scanned into [employer] and attached to record. ml4 02/27 03:50 T-Sheet-- Draft Copy was scanned into [employer] and attached to record. hs2 Administered Medications: 02/26 19:46 Drug: OLANZapine 10 mg [olanzapine 5 mg tablet (2 tabs)] Route: PO; slm 21:00 Follow up: Response: Anxiety is improved sl Signatures: Dispatcher [employer] EDMS Antwon Perez, SKYE PSA cl Serene Sifuentes, PSA PSA ml4 Anuja Crowley,RN RN lf1 Gigi Rondon, DO DO cs11 Debbie Hathaway,BUYER BUYER slm Omer Hernandez, Reg Reg mpb Radha Joya, Reg Reg hs2 The chart was reviewed and I authenticate all verbal orders and agree with the evaluation and treatment provided.Attachments: 20:19 [facility] Payment Agreement mp 02/27 03:50 T-Sheet-- Draft Copy hs2 Chart Complete MTDD
--- NOTE | 2016-02-29 22:10 | EDDOCDS ---
Nurse's Notes [facility] Name: Carlos Dunlap Age: 55 yrs Sex: Male : 1960 Arrival Date: 02/27/2016 Time: 18:56 Bed OBSERVATION Private MD: No Pcp Diagnosis: Bipolar disorder, current episode hypomanic;Adverse effect of amphetamines Presentation: 02/26 19:05 Red Flag criteria, patient assessed and taken directly to a bed. Pt. taken directly to [facility] P2 with family member . Pt reports Depression and thoughts of hurting himself with recent psych admission. 19:14 Presenting complaint: Patient states: Pt reports Bipolar illness history and is lf1 "feeling very inside" states he feels "I wish I would in my sleep" . Refuses to answer when asked if he has plans to harm himself but states "I just wish the Lord would take me in my sleep". Denies HI. Mental Health Triage Level: Level 2: The patient displays active suicidal ideations. Adult Sepsis Screening: Patient has new or worsening altered mentation (1 point). Patient's respiratory rate is less than 22. Systolic blood pressure is greater than 100. Patient has a qSOFA score of 1- Negative Sepsis Screen. Mental Health Triage Level: Level 2: The patient displays active suicidal ideations. Suicide/Homicide risk assessment- The patient admits to and/or has been reported to be having suicidal ideations. Patient denies SI and HI but presents with another emotional, behavioral or other mental health complaint. The patient reports that he/she has been admitted to an inpatient mental health facility in the last 30 days. Status: Patient is not a patient service specialist or dependent. Transition of care: patient was not received from another setting of care. 19:14 Acuity: PHYLLIS Level 3 lf1 19:14 Method Of Arrival: Walkin/Carried/Asstd lf1 Triage Assessment: 19:14 General: Appears in no apparent distress, comfortable, Behavior is cooperative. Pain: lf1 Location: headache and lower neck pain Pain currently is 10 out of 10 on a pain scale. HIV screening NA for this visit Offered previously. Neurological: Level of Consciousness is awake, alert, Oriented to person, place, time, Moves all extremities. Gait is steady, Speech is normal, Facial symmetry appears normal. EENT: No deficits noted. Cardiovascular: Chest pain is denied. Respiratory: Respiratory effort is even, unlabored, Respiratory pattern is regular, Breath sounds are clear bilaterally. GI: Reports constipation, diarrhea, Denies nausea, vomiting. 19:30 : No deficits noted. Derm: No deficits noted. lf1 Historical: - Allergies: PENICILLINS (Hives); - Home Meds: 1. Zyprexa 30 mg at HS Oral tab (Last dose: 02/26/2016 20:00) 2. Prozac 40 mg Oral cap 1 cap once daily (Last dose: 02/27/2016 08:00) 3. trazodone 100 mg Oral tab 1 tab (Last dose: 02/26/2016 20:00) - PMHx: Bipolar disorder; Anxiety Disorder; OCD; - PSHx: Hernia repair; Cholecystectomy; - Social history: Smoking status: Patient uses tobacco products, current every day smoker. No barriers to communication noted, The patient speaks fluent Lithuanian, Speaks appropriately for age, Preferred Language: Lithuanian. - Family history: Not pertinent. - : The pt / caregiver states he / she is not on anticoagulants. Home medication list is obtained from the patient. - Exposure Risk Screening:: None identified. Screenin:30 Screening information is obtained from the patient. Fall risk: No risks identified. lf1 Assistance ADL's: requires no assistance with activities of daily living. Abuse/DV Screen: The patient / caregiver reports he/she is: not in a situation that causes fear, pain or injury. Nutritional screening: No deficits noted. Advance Directives: Currently, there is no health care proxy. home support is inadequate. Assessment: 19:31 General: Pt reports that he is physically able to to take care of himself but feels lf1 that he no longer has the will to do so. . 19:54 General: Appears in no apparent distress, comfortable, Behavior is appropriate for age, slm cooperative. General: security observing . Respiratory: Airway is patent Respiratory effort is even, unlabored. Derm: Skin is intact, Skin is pink, warm & dry. 20:46 General: Appears in no apparent distress, comfortable, Behavior is appropriate for age, slm cooperative, pleasant. General: pt sitting on stretcher security observing . Respiratory: Airway is patent Respiratory effort is even, unlabored. 20:59 General: Appears in no apparent distress, comfortable, Behavior is appropriate for age, slm cooperative, pleasant. Pain: Denies pain. Respiratory: Airway is patent Respiratory effort is even, unlabored. Mental Health Eval: 19:15 Status: The patient is not a patient service specialist or dependent. Referral cl Information: Evaluation referral is generated by the patient himself / herself. The patient was referred for evaluation because Pt with hx of Bipolar d/o and recent psych admissions to [facility], returns tonight c/o anxiety/depression, thoughts of self harm, pt.'s brother brought him to ED.. Mental Health history: anxiety, Bipolar Disorder, depression, suicide ideation ideation Mental Health Admissions: Several to [facility]. in past, most recently [facility] 02/03/16-02/17/16. Current living environment is The patient currently lives alone. 19:49 [facility] Behavioral Health: The patient is established as a patient of [facility] Behavioral cl Health. Subjective: The patients chief complaint is Pt reports worsening depression/anxiety since being d/c'd from [facility] 02/17/16, has hx of Bipolar d/o and feels unable to care for self, feeling hopeless/helpless, asked his brother to bring him to ED. Pt was to have his first appt. at [facility] today, states he called to cancel because he felt the need to come to ED for psych admission. Pt appears disheveled/unkempt, is calm and cooperative, feels he is "collapsing", adds "I don't have the desire or determination to live anymore, and it scares the hell out of me". Pt reports sleep/appetite/energy/concentration px, has no motivation, states "I just don't care anymore". Pt denies HI/AH/VH, denies any substance abuse, reports compliance with medications. Pt has multiple prior psych admissions to [facility]., moved to area several months ago, currently lives alone. Pt denies any suicidal plan, continues to voice passive SI, states "I wish the Lord would just take me in my sleep".. Delusions are denied. Patient's mood is anxious, dysthymic, Hallucinations are denied. Patient presents to Emergency Department with the following symptoms within the past 2 weeks: anxiety, decreased appetite, depressed mood, feelings of helplessness/hopelessness, poor concentration, sleep disturbance - erratic suicidal ideation with no plan. Substance abuse: Pt denies. Mental status exam: Patients appearance is disheveled unkempt, Patient's behavior is cooperative, Speech is normal. Affect is appropriate. Mood is dysthymic Hallucinations are denied. Appetite is erratic Memory is good. Energy level is tires easily. Content of thought is depressive. depressive Thought process is intact. Cognitive level is oriented to person, place, time and situation Patient's insight is fair. Judgement is fair. Rapport with interviewer is good. Suicidal Ideation is present with no specific plan. Homicidal ideation is not present. 20:39 Disposition: Medically cleared for disposition by Gigi Rondon DO Psychiatric Consult cl is performed by phone with Dr Sajan Peoples. 21:01 [facility] Admission Criteria: The patient is experiencing suicidal ideation. The patient cl displays symptoms of severe psychiatric disorder resulting in disordered behavior and significant interference with his / her ability to maintain self care. Severe Anxiety. The patient requires continuous observation and/or control to protect self, others or property. The patient's care requires a multi-modal treatment plan under close supervision and coordination due to the complexity and severity of the patient's symptoms. Legal Status: Patient's legal status will be Emergency admission: 39. [place] Safe [place]: [place] Safe Act is not applicable because patient was registered less than 6 months ago. DSM-V Differential Diagnosis: Bipolar I Disorder (F31.0) Current or most recent episode depressed. Insurance Pre-Certification: Not Required, Medicare. Family Notification: Notification to family of patient status is not currently needed or appropriate. Awaiting: transfer to [facility]. Vital Signs: 18:57 BP 161 / 73; Pulse 81; Resp 18 S; Temp 97.6(O); Pulse Ox 98% on R/A; Weight 88.45 kg gr2 (R); Height 6 ft. 1 in. (185.42 cm) (R); Pain 2/10; 21:02 BP 109 / 61; Pulse 67; Resp 18; Temp 97.1(O); Pulse Ox 98% ; Pain 7/10; cmb 18:57 Body Mass Index 25.73 (88.45 kg, 185.42 cm) gr2 Vitals: 18:57 Log In Time: February 27, 2016 at 18:57. RN notified that patient meets Red Flag gr2 criteria. ED Course: 18:57 Patient visited by Amee Hadley. gr2 18:57 No Pcp is Private Physician. gr2 18:57 Patient moved to Waiting gr2 18:59 Patient visited by Amee Hadley. gr2 18:59 Patient moved to Pre RCE gr2 19:02 Patient moved to BHU2 gr2 19:03 Gigi Rondon DO is Attending Physician. cs11 19:03 Patient visited by Gigi Rondon DO. cs11 19:04 Patient visited by Katie Melchor. cmb 19:20 Triage Initiated lf1 19:30 Patient moved to OBSERVATION cs11 19:31 Patient visited by Anuaj Crowley RN. lf1 19:39 Patient visited by Katie Melchor. cmb 19:46 Debbie Hathaway LPN is Primary Nurse. slm 19:53 No IV's were initiated during this patient's visit. No procedures done that require slm assistance. Labs drawn. (by ED staff). Sent per order to lab. Urine collected. Urine specimen sent to lab. 19:54 Patient visited by Debbie Hathaway LPN. slm 20:06 Patient visited by Katie Melchor. cmb 20:19 Patient name changed from Carlos\\S\\\\S\\Germán\\S\\ to Carlos\\S\\ \\S\\Germán. EDMS 20:19 [facility] Payment Agreement was scanned into [employer] and attached to record. mpb 20:26 Patient visited by Debbie Hathaway LPN. slm 20:34 Patient visited by Katie Melchor. cmb 20:47 Patient visited by Debbie Hathaway LPN. slm 20:47 Patient visited by Katie Melchor. cmb 20:47 Sajan Peoples is Hospitalizing Provider. cs11 20:54 Patient visited by Katie Melchor. cmb 20:56 E Legal paperwork was scanned into [employer] and attached to record. ml4 21:02 Patient visited by Katie Melchor. cmb 21:07 Patient visited by Debbie Hathaway LPN. slm 21:07 The patient / caregiver is instructed regarding the plan of care and ED course. Patient slm has correct armband on for positive identification. Placed in psych safe attire. Bed in low position. Security observing. 02/27 03:50 T-Sheet-- Draft Copy was scanned into [employer] and attached to record. hs2 Administered Medications: 02/26 19:46 Drug: OLANZapine 10 mg [olanzapine 5 mg tablet (2 tabs)] Route: PO; slm 21:00 Follow up: Response: Anxiety is improved sl Attachments: 20:56 [facility] Legal paperwork ml4 Order Results: Lab Order: Acetaminophen Level; SPEC'M 02/27/16 19:52 Test: ACETAMINOPHEN LEVEL; Value: < 2.0; Range: 10.0-30.0; Abnormal: Below low normal; Units: UG/ML; Status: F Lab Order: Basic Metabolic Profile; SPEC'M 02/27/16 19:52 Test: GLUCOSE, FASTING; Value: 87; Range: 70-105; Units: MG/DL; Status: F Test: BLOOD UREA NITROGEN; Value: 13; Range: 7-18; Units: MG/DL; Status: F Test: CREATININE FOR GFR; Value: 1.14; Range: 0.70-1.30; Units: MG/DL; Status: F Test: GLOMERULAR FILTRATION RATE; Value: > 60.0; Range: >56; Status: F Test: SODIUM LEVEL; Value: 144; Range: 136-145; Units: MEQ/L; Status: F Test: POTASSIUM SERUM; Value: 4.0; Range: 3.5-5.1; Units: MEQ/L; Status: F Test: CHLORIDE LEVEL; Value: 106; Range: 98-107; Units: MEQ/L; Status: F Test: CARBON DIOXIDE LEVEL; Value: 29; Range: 21-32; Units: MEQ/L; Status: F Test: ANION GAP; Value: 9; Range: 8-16; Units: MEQ/L; Status: F Test: CALCIUM LEVEL; Value: 9.9; Range: 8.5-10.1; Units: MG/DL; Status: F Test Note: ; Units are mL/min/1.73 m2 Chronic Kidney Disease Staging per NKF: Stage I & II GFR >=60 Normal to Mildly Decreased Stage III GFR 30-59 Moderately Decreased Stage IV GFR 15-29 Severely Decreased Stage V GFR <15 Very Little GFR Left ESRD GFR <15 on GATE ATTENDANT Lab Order: Complete Blood Count; SPEC'M 02/27/16 19:52 Test: WHITE BLOOD COUNT; Value: 7.3; Range: 4.0-10.0; Units: K/mm3; Status: F Test: RED BLOOD COUNT; Value: 4.56; Range: 4.30-6.10; Units: M/mm3; Status: F Test: HEMOGLOBIN; Value: 15.1; Range: 14.0-18.0; Units: g/dl; Status: F Test: HEMATOCRIT; Value: 43.9; Range: 42.0-52.0; Units: %; Status: F Test: MEAN CORPUSCULAR VOLUME; Value: 96.3; Range: 80.0-96.0; Abnormal: Above high normal; Units: fl; Status: F Test: MEAN CORPUSCULAR HEMOGLOBIN; Value: 33.2; Range: 27.0-33.0; Abnormal: Above high normal; Units: pg; Status: F Test: MEAN CORPUSCULAR HGB CONC; Value: 34.5; Range: 32.0-36.5; Units: g/dl; Status: F Test: RED CELL DISTRIBUTION WIDTH; Value: 12.6; Range: 11.5-14.5; Units: %; Status: F Test: PLATELET COUNT, AUTOMATED; Value: 195; Range: 150-450; Units: k/mm3; Status: F Lab Order: Drug Eval Toxicology ED Only; SPEC'M 02/27/16 19:52 Test: AMPHETAMINES LEVEL URINE; Value: POSITIVE; Range: NEGATIVE; Abnormal: Above high normal; Status: F Test: BARBITURATES URINE; Value: NEGATIVE; Range: NEGATIVE; Status: F Test: BENZODIAZEPINES URINE; Value: NEGATIVE; Range: NEGATIVE; Status: F Test: CANNABINOIDS URINE; Value: NEGATIVE; Range: NEGATIVE; Status: F Test: COCAINE METABOLITE URINE; Value: NEGATIVE; Range: NEGATIVE; Status: F Test: METHADONE URINE; Value: NEGATIVE; Range: NEGATIVE; Status: F Test: OPIATES URINE; Value: NEGATIVE; Range: NEGATIVE; Status: F Test: TRICYCLIC ANTIDEPRESS URINE; Value: NEGATIVE; Range: NEGATIVE; Status: F Test Note: ; ALL PRESUMPTIVE POSITIVE FINDINGS ARE UNCONFIRMED NORMAL VALUES THRESHOLD IN NG/ML AMPHETAMINES 1000 METHAMPHETAMINES 1000 BARBITURATES 300 BENZODIAZEPINES 300 CANNABINOIDS (THC) 50 COCAINE METABOLITE 300 METHADONE 300 OPIATES 300 PHENCYCLIDINE 25 TRICYCLIC ANTIDEPRESSANTS 1000 RESULTS ARE FOR MEDICAL PURPOSES ONLY. ALL URINE SPECIMENS WILL BE SAVED FOR 3 DAYS. IF CONFIRMATION OF A PRESUMPTIVE POSTIVE SCREEN RESULT IS DESIRED, CALL CHEMISTRY ([phone]) AND REQUEST URINE TO BE SENT TO REFERENCE LAB. FOR A LIST OF CLOSELY RELATED COMPOUNDS PLEASE CALL THE LAB. Lab Order: Ethyl Alcohol (ethanol); SPEC02/27/16 19:52 Test: ETHYL ALCOHOL (ETHANOL); Value: 0.003; Range: 0.000-0.010; Units: %; Status: F Lab Order: Liver Profile; 02/27/16 19:52 Test: AST/SGOT; Value: 9; Range: 15-37; Abnormal: Below low normal; Units: U/L; Status: F Test: ALT/SGPT; Value: 19; Range: 12-78; Units: U/L; Status: F Test: ALKALINE PHOSPHATASE; Value: 83; Range: 45-117; Units: U/L; Status: F Test: BILIRUBIN,TOTAL; Value: 0.5; Range: 0.2-1.0; Units: MG/DL; Status: F Test: BILIRUBIN,DIRECT; Value: 0.1; Range: 0.0-0.2; Units: MG/DL; Status: F Test: TOTAL PROTEIN; Value: 6.9; Range: 6.4-8.2; Units: GM/DL; Status: F Test: ALBUMIN; Value: 4.2; Range: 3.2-5.2; Units: GM/DL; Status: F Test: ALBUMIN/GLOBULIN RATIO; Value: 1.56; Range: 1.00-1.93; Status: F Lab Order: Salicylate Level; SPEC02/27/16 19:52 Test: SALICYLATE LEVEL; Value: 3.2; Range: 5.0-30.0; Abnormal: Below low normal; Units: MG/DL; Status: F Lab Order: Thyroid Stimulating Hormone; SPEC02/27/16 19:52 Test: THYROID STIMULATING HORMONE; Value: 0.515; Range: 0.358-3.740; Units: uIU/ML; Status: F Outcome: 02/26 20:48 Decision to Hospitalize by Provider. cs11 21:06 Discharge Assessment: Patient awake, alert and oriented x 3. No cognitive and/or slm functional deficits noted. Patient verbalized understanding of disposition instructions. patient administered narcotics - no. The following High Risk Discharge criteria are identified: None. Admitted to Psych accompanied by tech, via wheelchair, with chart. Condition: stable. No special radiology studies were completed. Property removed, inventory done, secured in belongings bag- placed in locked locker. 21:08 Patient left the ED. slm Signatures: Dispatcher [employer] EDMS Antwon Perez, PSA PSA cl Serene Sifuentes, PSA PSA ml4 Anuja Crowley,FRANCES RN lf1 Katie Melchor cmb Gigi Rondon, DO cs11 Amee Hadley gr2 Debbie Hathaway,VB NET DEVELOPER VB NET DEVELOPER slm Omer Hernandez, Reg Reg mpb Radha Joya, Reg Reg hs2 Chart Complete MTDD
[2016-03-01 06:18] VITALS: BP 134/65
[2016-03-01] MEDS: MICONAZOLE 2 % POWDER (DESENEX) TOP SCH ×2 (08:41→21:00)
[2016-03-01] MEDS: FLUoxetine 20 MG CAP PO SCH (08:41)
--- NOTE | 2016-03-01 11:41 | IPNPDOC ---
[facility] Progress Note Progress Note DATE: 03/01/16 HISTORY OF THE PRESENT ILLNESS: Patient is a 55-year-old male. Patient states he does not know what changed for him. Patient does not know any specific triggers. Patient was seen for a January admission. Prior to that his last admission was in 2014, August into September for depression and anxiety. Patient states "nothing in particular that is bringing it out ". Patient does admit that he had not been on his meds for 8 months prior to the January admission. Patient cannot give any clear reason for this. Patient answers with I don't know or I don't remember PAST PSYCHIATRIC HISTORY: Patient states he was first diagnosed with bipolar disorder in the fall of 1993 when he was about 33 years old. Patient states he did notice that he started having trouble in his mid 20s. Rates "I had trouble keeping jobs ". 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 Patient does not offer or remember specific treatments or medications during this period of time. VITAL SIGNS: See below. NEW TEST RESULTS: See below. Pt. was ordered an EKG on admission, significant labs are his SGOT is low, patient UDS on admission was positive for amphetamines. Patient states he has never used amphetamines and does not know why this is positive. CURRENT MEDICATIONS: See below. Zyprexa 30 mg by mouth daily at bedtime, fluoxetine 40 mg by mouth every morning, trazodone 100 mg by mouth daily at bedtime when necessary for sleep. MENTAL STATUS EXAMINATION: Patient is a 55 year old male, looks older than his stated age, who is tall, unkempt, unshaven(after being encouraged yesterday to shave) with a thin build. Of note, patient smelled of alcohol on admission. Patient had been confrontational, demanding, argumentative at last assessment. Mental health worker Shakir chaperoned today's assessment. Patient states "I am so depressed and anxious". Speech: Is is of normal rate and volume. Patient is circumstantial, articulate, coherent and spontaneous. Thought processes: Clear, goal directed at times. Thought content: Rational, logical, no evidence of paranoia. Abstract reasoning: Adequate. Computation: Adequate. Associations: Intact. Abnormal or psychotic thoughts: Patient denies hallucinations, delusions, obsessions, compulsions, paranoia, homicidal or suicidal ideation. Patient continually derails conversation, is re-directed each time. Judgment: Poor. Insight: Poor. Oriented to: Person, place, time and surroundings. Recent and Remote Memory: Patient states "not really"(any problems ). Attention Span and Concentration: Poor. Patient does not interrupt provider with napper runner present, goes off on tangents less with napper runner. Language: Normal. Fund of knowledge: Adequate. Mood: "OK ", antagonistic, ?Passive/ aggressive. Affect: Appropriate, reactive, rational. DIAGNOSES: Major depressive disorder, Anxiety. ASSESSMENT: Patient is much more calm and appropriate with napper runner present. Patient is resistant to any suggestions offered. Patient had stated in prior assessments that he was anxious, and he basically came here to rest. Patient continually repeats that he is the only one that can make himself feel better. Patient has not mentioned once not being able to be in his room with napper runner present. Patient on prior assessments has told the provider that he had no intention of participating or doing anything other than sleep when he was admitted this time. Continued to discuss with patient, strategies for improving his depression, anger and anxiety. Reviewed again with patient appropriate behavior on this inpatient unit. Reviewed with patient expectations that he will participate with unit programming and activities to aid his depression and anxiety. MANAGEMENT PLAN: Patient to continue medications as above. Maintain safety precautions. Patient to attend groups and participate in unit programming to develop effective coping strategies. Patient to engage in discharge planning process to ensure safe and effective discharge plan. Patient to follow-up with PCP upon discharge. Patient to start therapy upon discharge. Patient to not be in his room unless it is quiet time or bedtime. Vital Signs/I&O Vital Signs Date Time Temp Pulse Resp B/P Pulse Ox O2 Delivery O2 Flow Rate FiO2 03/01/16 06:18 96.2 87 18 134/65 02/29/16 15:56 Room Air Current Medications Current Medications Acetaminophen (Tylenol) 650 mg Q6HP PRN PO HEADACHE or DISCOMFORT; Start at 21:45; Stop 03/28/16 at 21:44 Al Hydrox/Mg Hydrox/Simethicone (Mylanta) 30 ml Q4HP PRN PO HEARTBURN/ INDIGESTION; Start 02/27/16 at 21:45; Stop 03/28/16 at 21:44 Fluoxetine HCl (PROzac) 40 mg QAM PO Last administered on 03/01/16 08:41; Start 02/28/16 at 09:00; Stop 03/29/16 at 08:59 Home Med (Med Rec Complete!) ASDIRECTED XX ; Start 02/27/16 at 21:15; Stop at 21:20; Status DC Magnesium Hydroxide (Milk Of Magnesia) 30 ml DAILYPRN PRN PO CONSTIPATION; Start 02/27/16 at 21:45; Stop 03/28/16 at 21:44 Miconazole Nitrate (Lotrimin Af 2%) 1 dose BID TOP Last administered on 08:41; Start 02/28/16 at 09:00; Stop 03/29/16 at 08:59 Olanzapine (ZyPREXA) 10 mg STK-MED ONCE As Ordered ; Start 02/27/16 at 19:37; Stop 02/27/16 at 19:38; Status DC Olanzapine (ZyPREXA) 30 mg QHS PO Last administered on 02/29/16 20:54; Start 02/28/16 at 21:00; Stop 03/29/16 at 20:59 Trazodone HCl (Desyrel) 100 mg QHSP PRN PO INSOMNIA Last administered on 20:54; Start 02/27/16 at 21:45; Stop 03/28/16 at 21:44 Allergies Coded Allergies: Penicillins (Unverified Allergy, Unknown, ANAPHYLAXIS, 01/24/16) Shellfish Allergy (Unverified Allergy, Unknown, ANAPHYLAXIS, 01/24/16) MYKE YUNG NP Mar 01, 2016 11:41
[2016-03-01 18:00] VITALS: BP 98/53
[2016-03-01] MEDS: OLANZapine 10 MG TAB PO SCH (21:01)
[2016-03-01] MEDS: traZODone 50 MG TAB PO PRN (21:03)
[2016-03-02 06:11] VITALS: BP 123/61
[2016-03-02] MEDS: FLUoxetine 20 MG CAP PO SCH (08:43)
[2016-03-02] MEDS: MICONAZOLE 2 % POWDER (DESENEX) TOP SCH ×2 (08:43→20:51)
[2016-03-02 18:00] VITALS: BP 98/59
--- NOTE | 2016-03-02 18:53 | IPNPDOC ---
[facility] Progress Note Progress Note DATE OF SERVICE: 03/02/16 HISTORY OF THE PRESENT ILLNESS: Patient is a 55-year-old male. Patient states he does not know what changed for him. Patient does not know any specific triggers. Patient was seen for a January admission. Prior to that his last admission was in 2014, August into September for depression and anxiety. Patient states "nothing in particular that is bringing it out ". Patient does admit that he had not been on his meds for 8 months prior to the January admission. Patient cannot give any clear reason for this. Patient answers with I don't know or I don't remember PAST PSYCHIATRIC HISTORY: Patient states he was first diagnosed with bipolar disorder in the fall of 1993 when he was about 33 years old. Patient states he did notice that he started having trouble in his mid 20s. Rates "I had trouble keeping jobs ". 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 Patient does not offer or remember specific treatments or medications during this period of time. VITAL SIGNS: See below. NEW TEST RESULTS: See below. Pt. was ordered an EKG on admission, significant labs are his SGOT is low, patient UDS on admission was positive for amphetamines. Patient states he has never used amphetamines and does not know why this is positive. CURRENT MEDICATIONS: See below. Zyprexa 30 mg by mouth daily at bedtime, fluoxetine 40 mg by mouth every morning, trazodone 100 mg by mouth daily at bedtime when necessary for sleep. MENTAL STATUS EXAMINATION: Patient is a 55 year old male, looks older than his stated age, who is tall, unkempt, still unshaven(after being encouraged 2 days in a row to shave) with a thin build. Of note, patient smelled of alcohol on admission. Patient had been confrontational, demanding, argumentative at prior assessments without integration analyst. Mental health worker Shakir chaperoned today's assessment. Pt. starts today's assessment with a smile and by saying "Hello". Speech: Is is of normal rate and volume. Patient is circumstantial, articulate, coherent and spontaneous. Thought processes: Clear, goal directed at times. Thought content: Rational, logical, no evidence of paranoia. Abstract reasoning: Adequate. Computation: Adequate. Associations: Intact. Abnormal or psychotic thoughts: Patient denies hallucinations, delusions, obsessions, compulsions, paranoia, homicidal or suicidal ideation. Patient continually derails conversation, is re-directed each time. Judgment: Poor. Insight: Poor. Oriented to: Person, place, time and surroundings. Recent and Remote Memory: "OK" per patient. Attention Span and Concentration: "Better" per pt. Patient again does not interrupt provider with integration analyst present, goes off on tangents less with integration analyst. Language: Normal. Fund of knowledge: Adequate. Mood: "Good, yup", less antagonistic, less Passive/aggressive. Appears to be more reasonable and even tempered. Affect: Appropriate, rational. DIAGNOSES: Major depressive disorder, Anxiety. ASSESSMENT: Patient is again more calm and appropriate with integration analyst present. Patient less resistant to suggestions offered. Patient had stated in prior assessments that he was anxious, and he basically came here to rest. Patient continually repeats that he is the only one that can make himself feel better. Patient states he does not know of any current social security review even though he told integration analyst that he needed this admission for that very reason. Patient again does not mention not being able to be in his room with integration analyst present. Patient on prior assessments has told the provider that he had no intention of participating or doing anything other than sleep when he was admitted this time. Continued to discuss with patient, strategies for improving his depression, anger and anxiety. Continued to review with patient appropriate behavior on this inpatient unit. Reviewed again patient expectations that he will participate with unit programming and activities to aid his depression and anxiety. Pt. again encouraged to shave. MANAGEMENT PLAN: Patient to continue medications as above. Maintain safety precautions. Patient to attend groups and participate in unit programming to develop effective coping strategies. Patient to engage in discharge planning process to ensure safe and effective discharge plan. Patient to follow-up with PCP upon discharge. Patient to start therapy upon discharge. Patient to not be in his room unless it is quiet time or bedtime. Vital Signs/I&O Vital Signs Date Time Temp Pulse Resp B/P Pulse Ox O2 Delivery O2 Flow Rate FiO2 03/02/16 18:00 97.3 80 18 98/59 03/02/16 09:38 Room Air Current Medications Current Medications Acetaminophen (Tylenol) 650 mg Q6HP PRN PO HEADACHE or DISCOMFORT; Start at 21:45; Stop 03/28/16 at 21:44 Al Hydrox/Mg Hydrox/Simethicone (Mylanta) 30 ml Q4HP PRN PO HEARTBURN/ INDIGESTION; Start 02/27/16 at 21:45; Stop 03/28/16 at 21:44 Fluoxetine HCl (PROzac) 40 mg QAM PO Last administered on 03/02/16 08:43; Start 02/28/16 at 09:00; Stop 03/29/16 at 08:59 Home Med (Med Rec Complete!) ASDIRECTED XX ; Start 02/27/16 at 21:15; Stop at 21:20; Status DC Magnesium Hydroxide (Milk Of Magnesia) 30 ml DAILYPRN PRN PO CONSTIPATION; Start 02/27/16 at 21:45; Stop 03/28/16 at 21:44 Miconazole Nitrate (Lotrimin Af 2%) 1 dose BID TOP Last administered on 08:43; Start 02/28/16 at 09:00; Stop 03/29/16 at 08:59 Olanzapine (ZyPREXA) 10 mg STK-MED ONCE As Ordered ; Start 02/27/16 at 19:37; Stop 02/27/16 at 19:38; Status DC Olanzapine (ZyPREXA) 30 mg QHS PO Last administered on 03/01/16 21:01; Start 02/28/16 at 21:00; Stop 03/29/16 at 20:59 Trazodone HCl (Desyrel) 100 mg QHSP PRN PO INSOMNIA Last administered on 21:03; Start 02/27/16 at 21:45; Stop 03/28/16 at 21:44 Allergies Coded Allergies: Penicillins (Unverified Allergy, Unknown, ANAPHYLAXIS, 01/24/16) Shellfish Allergy (Unverified Allergy, Unknown, ANAPHYLAXIS, 01/24/16) MYKE YUNG NP Mar 02, 2016 18:53
[2016-03-02] MEDS: traZODone 50 MG TAB PO PRN (20:51)
[2016-03-02] MEDS: OLANZapine 10 MG TAB PO SCH (20:51)
[2016-03-03 06:04] VITALS: BP 132/67
[2016-03-03] MEDS: MICONAZOLE 2 % POWDER (DESENEX) TOP SCH ×2 (08:45→21:41)
[2016-03-03] MEDS: FLUoxetine 20 MG CAP PO SCH (08:45)
[2016-03-03 18:00] VITALS: BP 104/56
[2016-03-03] MEDS: OLANZapine 10 MG TAB PO SCH (21:42)
[2016-03-03] MEDS: traZODone 50 MG TAB PO PRN (23:24)
[2016-03-04 06:15] VITALS: BP 122/68
[2016-03-04] MEDS: FLUoxetine 20 MG CAP PO SCH (08:52)
[2016-03-04] MEDS: MICONAZOLE 2 % POWDER (DESENEX) TOP SCH ×2 (08:52→20:50)
[2016-03-04 18:00] VITALS: BP 108/61
[2016-03-04] MEDS: OLANZapine 10 MG TAB PO SCH (20:49)
[2016-03-04] MEDS: traZODone 50 MG TAB PO PRN (20:50)
[2016-03-05 06:27] VITALS: BP 151/69
[2016-03-05] MEDS: FLUoxetine 20 MG CAP PO SCH (08:39)
[2016-03-05] MEDS: MICONAZOLE 2 % POWDER (DESENEX) TOP SCH ×2 (08:39→20:56)
[2016-03-05] MEDS ORDERED: MICONAZOLE 2 % POWDER (DESENEX) TOP SCH (09:57)
[2016-03-05 18:00] VITALS: BP 103/59
--- NOTE | 2016-03-05 19:55 | IPNPDOC ---
[facility] Progress Note Progress Note DATE OF SERVICE: 03/05/16 HISTORY: Patient is a 55-year-old male. Patient states he does not know what changed for him. Patient does not know any specific triggers. Patient was seen for a January admission. Prior to that his last admission was in 2014, August into September for depression and anxiety. Patient states "nothing in particular that is bringing it out ". Patient does admit that he had not been on his meds for 8 months prior to the January admission. Patient cannot give any clear reason for this. Patient answers with I don't know or I don't remember PAST PSYCHIATRIC HISTORY: Patient states he was first diagnosed with bipolar disorder in the fall of 1993 when he was about 33 years old. Patient states he did notice that he started having trouble in his mid 20s. Rates "I had trouble keeping jobs ". 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 Patient does not offer or remember specific treatments or medications during this period of time. VITAL SIGNS: See below. 96.9 71 18 151/69 NEW TEST RESULTS: See below. Pt. was ordered an EKG on admission, significant labs are his SGOT is low, patient UDS on admission was positive for amphetamines. Patient states he has never used amphetamines and does not know why this is positive. CURRENT MEDICATIONS: See below. Zyprexa 30 mg by mouth daily at bedtime, fluoxetine 40 mg by mouth every morning, trazodone 100 mg by mouth daily at bedtime when necessary for sleep. MENTAL STATUS EXAMINATION: Patient is a 55 year old male, looks older than his stated age, who is tall, unkempt, still unshaven(Pt. states he shaved 2 days ago ) with a thin build. Of note, patient smelled of alcohol on admission. Patient had been confrontational, demanding, argumentative at prior assessments without regional vice president surgical sales. Mental health worker chaperoned today's assessment. Pt. starts today 's assessment with a smile and by saying "Hello". Before regional vice president surgical sales is in room, pt requests that his prozac be stopped as he feels it is making him tired. Speech: Is is of normal rate and volume. Patient is circumstantial, articulate, coherent and spontaneous. Thought processes: Clear, goal directed at times. Thought content: Rational, logical, no evidence of paranoia. Abstract reasoning: Adequate. Computation: Adequate. Associations: Intact. Abnormal or psychotic thoughts: Patient denies hallucinations, delusions, obsessions, compulsions, paranoia, homicidal or suicidal ideation. Patient continually derails conversation, is re-directed each time. Slightly confrontational today after not getting the answer he wanted about Prozac. Judgment: Fair. Insight: Fair. Oriented to: Person, place, time and surroundings. Recent and Remote Memory: "Seem to be doing all right" per patient. Attention Span and Concentration: Good. Patient again does not interrupt provider with regional vice president surgical sales present, goes off on tangents less with regional vice president surgical sales. Language: Normal. Fund of knowledge: Adequate. Mood: "Good", slightly confrontational. Appears to be able to control his behavior with regional vice president surgical sales. Affect: Appropriate, rational. DIAGNOSES: Major depressive disorder, Anxiety. ASSESSMENT: Patient is again more calm and appropriate with regional vice president surgical sales present, slightly confrontational before regional vice president surgical sales was in room. Patient less resistant to suggestions offered. Patient had stated in prior assessments that he was anxious, and he basically came here to rest. Patient continually repeats that he is the only one that can make himself feel better.When pt. asked if he has gotten notice of any SSD hearings pt. first refuses to answer and then states "No, I don't". Pt. appears upset that he was asked this question and feels it is personal and does not correspond to his stay here. He had previously told mental health worker Shakir that he did have a hearing and wanted copies of all his records for this reason and that he needed this admission for that very reason. Patient again does not mention not being able to be in his room with regional vice president surgical sales present. Patient on prior assessments has told the provider that he had no intention of participating or doing anything other than sleep when he was admitted this time. Continued to discuss with patient, strategies for improving his depression, anger and anxiety. Continued to review with patient appropriate behavior on this inpatient unit. Reviewed again patient expectations that he will participate with unit programming and activities to aid his depression and anxiety. Pt. again encouraged to shave on a regular basis. MANAGEMENT PLAN: Patient to continue medications as above. Maintain safety precautions. Patient to attend groups and participate in unit programming to develop effective coping strategies. Patient to engage in discharge planning process to ensure safe and effective discharge plan. Patient to follow-up with PCP upon discharge. Patient to start therapy upon discharge. Patient to not be in his room unless it is quiet time or bedtime. Vital Signs/I&O Vital Signs Date Time Temp Pulse Resp B/P Pulse Ox O2 Delivery O2 Flow Rate FiO2 03/05/16 18:00 97.1 77 16 103/59 03/02/16 13:00 Room Air Current Medications Current Medications Acetaminophen (Tylenol) 650 mg Q6HP PRN PO HEADACHE or DISCOMFORT; Start at 21:45; Stop 03/28/16 at 21:44 Al Hydrox/Mg Hydrox/Simethicone (Mylanta) 30 ml Q4HP PRN PO HEARTBURN/ INDIGESTION; Start 02/27/16 at 21:45; Stop 03/28/16 at 21:44 Fluoxetine HCl (PROzac) 40 mg QAM PO Last administered on 03/05/16 08:39; Start 02/28/16 at 09:00; Stop 03/29/16 at 08:59 Home Med (Med Rec Complete!) ASDIRECTED XX ; Start 02/27/16 at 21:15; Stop at 21:20; Status DC Magnesium Hydroxide (Milk Of Magnesia) 30 ml DAILYPRN PRN PO CONSTIPATION Last administered on 03/05/16 13:14; Start 02/27/16 at 21:45; Stop 03/28/16 at 21:44 Miconazole Nitrate (Lotrimin Af 2%) 1 dose BID TOP Last administered on 08:39; Start 02/28/16 at 09:00; Stop 03/05/16 at 09:57; Status DC Miconazole Nitrate (Lotrimin Af 2%) 1 dose BID TOP ; Start 03/05/16 at 09:57; Stop 03/29/16 at 08:59; Status Cancel Miconazole Nitrate (Lotrimin Af 2%) 1 dose BID TOP ; Start 03/05/16 at 21:00; Stop 03/29/16 at 08:59 Olanzapine (ZyPREXA) 10 mg STK-MED ONCE As Ordered ; Start 02/27/16 at 19:37; Stop 02/27/16 at 19:38; Status DC Olanzapine (ZyPREXA) 30 mg QHS PO Last administered on 03/04/16 20:49; Start 02/28/16 at 21:00; Stop 03/29/16 at 20:59 Trazodone HCl (Desyrel) 100 mg QHSP PRN PO INSOMNIA Last administered on 20:50; Start 02/27/16 at 21:45; Stop 03/28/16 at 21:44 Allergies Coded Allergies: Penicillins (Unverified Allergy, Unknown, ANAPHYLAXIS, 01/24/16) Shellfish Allergy (Unverified Allergy, Unknown, ANAPHYLAXIS, 01/24/16) MYKE YUNG NP Mar 05, 2016 19:55
[2016-03-05] MEDS: OLANZapine 10 MG TAB PO SCH (20:56)
[2016-03-05] MEDS: traZODone 50 MG TAB PO PRN (20:56)
[2016-03-06 06:29] VITALS: BP 131/69
[2016-03-06] MEDS: MICONAZOLE 2 % POWDER (DESENEX) TOP SCH ×2 (08:43→21:07)
[2016-03-06] MEDS: FLUoxetine 20 MG CAP PO SCH (08:43)
--- NOTE | 2016-03-06 15:43 | IPNPDOC ---
[facility] Progress Note Progress Note DATE OF SERVICE: 03/06/16 HISTORY: Patient is a 55-year-old male. Patient states he does not know what changed for him. Patient does not know any specific triggers. Patient was seen for a January admission. Prior to that his last admission was in 2014, August into September for depression and anxiety. Patient states "nothing in particular that is bringing it out ". Patient does admit that he had not been on his meds for 8 months prior to the January admission. Patient cannot give any clear reason for this. Patient answers with I don't know or I don't remember. Of note : With this admission patient has commented to several staff members that he has a SSD hearing coming up and needs copies of his records for this. When provider asked if this was the case he flat out denies having any hearing scheduled. Pt. further states he paid his bills and took care of all he needed to prior to admission. PAST PSYCHIATRIC HISTORY: Patient states he was first diagnosed with bipolar disorder in the fall of 1993 when he was about 33 years old. Patient states he did notice that he started having trouble in his mid 20s. Rates "I had trouble keeping jobs ". Patient tells this health underwriter that he sad 50-60 jobs in his lifetime. Patient does not offer or remember specific treatments or medications during this period of time. VITAL SIGNS: See below. 98.3 62 16 131/69 NEW TEST RESULTS: See below. Pt. was ordered an EKG on admission, significant labs are his SGOT is low, patient UDS on admission was positive for amphetamines. Patient states he has never used amphetamines and does not know why this is positive. CURRENT MEDICATIONS: See below. Zyprexa 30 mg by mouth daily at bedtime, fluoxetine 40 mg by mouth every morning, trazodone 100 mg by mouth daily at bedtime when necessary for sleep. MENTAL STATUS EXAMINATION: Cross Tie Maker is Pura; Patient is a 55 year old male, looks older than his stated age, who is tall, unkempt, states he shaved last night, with a thin build. Of note, patient smelled of alcohol on admission. Patient had been confrontational, demanding, argumentative at prior assessments without incinerator plant laborer. Mental health worker chaperoned today's assessment. Pt. starts today's assessment with a smile and by saying "Hello". Speech: Is is of normal rate and volume. Patient is circumstantial, articulate, coherent and spontaneous. Thought processes: Clear, goal directed at times. Thought content: Rational, logical, no evidence of paranoia. Abstract reasoning: Adequate. Computation: Adequate. Associations: Intact. Abnormal or psychotic thoughts: Patient denies hallucinations, delusions, obsessions, compulsions, paranoia, homicidal or suicidal ideation. Patient continually derails conversation, is re-directed each time. Judgment: Fair. Insight: Fair. Oriented to: Person, place, time and surroundings. Recent and Remote Memory: "No, I think I am doing pretty good" per patient. Attention Span and Concentration: Fair. Patient again does not interrupt provider with incinerator plant laborer present, goes off on tangents less with incinerator plant laborer. Language: Normal. Fund of knowledge: Adequate. Mood: "Good, yup", Appears to be able to control his behavior with incinerator plant laborer. Affect: Appropriate, rational. DIAGNOSES: Major depressive disorder, Anxiety. ASSESSMENT: Patient is again more calm and appropriate with incinerator plant laborer present. Patient less resistant to suggestions offered. Patient had stated in prior assessments that he was anxious, and he basically came here to rest. Patient continually repeats that he is the only one that can make himself feel better. When pt. askedon prior assessment if he has gotten notice of any SSD hearings pt. first refuses to answer and then states "No, I don't". Pt. appears upset that he was asked this question and feels it is personal and does not correspond to his stay here. He had previously told mental health worker FRANCES Schilling Pura that he did have a hearing and wanted copies of all his records for this reason and that he needed this admission for that very reason. Patient again does not mention not being able to be in his room with incinerator plant laborer present. Patient on prior assessments has told the provider that he had no intention of participating or doing anything other than sleep when he was admitted this time. Continued to discuss with patient, strategies for improving his depression , anger and anxiety. Continued to review with patient appropriate behavior on this inpatient unit. Reviewed again patient expectations that he will participate with unit programming and activities to aid his depression and anxiety. Pt. again encouraged to continue similar schedule upon discharge to continue improved mental health. Pt. states understanding but not necessarily agreement. Pt. has contracted with provider than any subsequent readmission for similar reasons will trigger a review for appropriateness of care. Pt. understands that tank terminal gauger care may be indicated. Pt. states understanding. MANAGEMENT PLAN: Patient to continue medications as above. Maintain safety precautions. Patient to attend groups and participate in unit programming to develop effective coping strategies. Patient to engage in discharge planning process to ensure safe and effective discharge plan. Patient to follow-up with PCP upon discharge. Patient to start therapy upon discharge. Patient to not be in his room unless it is quiet time or bedtime. Vital Signs/I&O Vital Signs Date Time Temp Pulse Resp B/P Pulse Ox O2 Delivery O2 Flow Rate FiO2 03/06/16 06:29 98.3 62 16 131/69 03/02/16 13:00 Room Air Current Medications Current Medications Acetaminophen (Tylenol) 650 mg Q6HP PRN PO HEADACHE or DISCOMFORT; Start at 21:45; Stop 03/28/16 at 21:44 Al Hydrox/Mg Hydrox/Simethicone (Mylanta) 30 ml Q4HP PRN PO HEARTBURN/ INDIGESTION; Start 02/27/16 at 21:45; Stop 03/28/16 at 21:44 Fluoxetine HCl (PROzac) 40 mg QAM PO Last administered on 03/06/16 08:43; Start 02/28/16 at 09:00; Stop 03/29/16 at 08:59 Home Med (Med Rec Complete!) ASDIRECTED XX ; Start 02/27/16 at 21:15; Stop at 21:20; Status DC Magnesium Hydroxide (Milk Of Magnesia) 30 ml DAILYPRN PRN PO CONSTIPATION Last administered on 03/05/16 13:14; Start 02/27/16 at 21:45; Stop 03/28/16 at 21:44 Miconazole Nitrate (Lotrimin Af 2%) 1 dose BID TOP Last administered on 08:39; Start 02/28/16 at 09:00; Stop 03/05/16 at 09:57; Status DC Miconazole Nitrate (Lotrimin Af 2%) 1 dose BID TOP ; Start 03/05/16 at 09:57; Stop 03/29/16 at 08:59; Status Cancel Miconazole Nitrate (Lotrimin Af 2%) 1 dose BID TOP Last administered on 08:43; Start 03/05/16 at 21:00; Stop 03/29/16 at 08:59 Olanzapine (ZyPREXA) 10 mg STK-MED ONCE As Ordered ; Start 02/27/16 at 19:37; Stop 02/27/16 at 19:38; Status DC Olanzapine (ZyPREXA) 30 mg QHS PO Last administered on 03/05/16 20:56; Start 02/28/16 at 21:00; Stop 03/29/16 at 20:59 Trazodone HCl (Desyrel) 100 mg QHSP PRN PO INSOMNIA Last administered on 20:56; Start 02/27/16 at 21:45; Stop 03/28/16 at 21:44 Allergies Coded Allergies: Penicillins (Unverified Allergy, Unknown, ANAPHYLAXIS, 01/24/16) Shellfish Allergy (Unverified Allergy, Unknown, ANAPHYLAXIS, 01/24/16) MYKE YUNG NP Mar 06, 2016 15:43
[2016-03-06 18:00] VITALS: BP 117/65
[2016-03-06] MEDS: traZODone 50 MG TAB PO PRN (21:07)
[2016-03-06] MEDS: OLANZapine 10 MG TAB PO SCH (21:07)
[2016-03-07 06:35] VITALS: BP 120/66
[2016-03-07] MEDS ORDERED: MICO2POW TOP (08:27)
[2016-03-07] MEDS: MICONAZOLE 2 % POWDER (DESENEX) TOP SCH (08:49)
[2016-03-07] MEDS: FLUoxetine 20 MG CAP PO SCH (08:49)
[2016-03-07] MEDS ORDERED: FLUO20CA9 PO (10:09)
[2016-03-07] MEDS ORDERED: TRAZO50TA PO (10:09)
[2016-03-07] MEDS ORDERED: OLAN10TA2 PO (10:09)
--- NOTE | 2016-03-07 10:09 | DS.PDOC ---
[facility] Discharge Summary Discharge Summary DATE OF ADMISSION: Feb 27, 2016 at 20:14 DATE OF DISCHARGE: Mar 07, 2016 HISTORY: Patient is a 55-year-old male. Patient states he does not know what changed for him that made him feel like he needed to be hospitalized, does not know any specific triggers. Patient was seen for a January admission. Prior to that his last admission was in 2014, August into September for depression and anxiety. Patient states "nothing in particular that is bringing it out ". Patient does admit that he had not been on his meds for 8 months prior to the January admission. Patient cannot give any clear reason for this. Patient answers with I don't know or I don't remember. Of note: With this admission patient has commented to several staff members that he has a SSD hearing coming up and needs copies of his records for this. When provider asked if this was the case he flat out denied having any hearing scheduled. Pt. further states he paid his bills and took care of all he needed to prior to admission. PAST PSYCHIATRIC HISTORY: Patient states he was first diagnosed with bipolar disorder in the fall of 1993 when he was about 33 years old. Patient states he did notice that he started having trouble in his mid 20s. Rates "I had trouble keeping jobs ". Patient tells this ghost writer that he sad 50-60 jobs in his lifetime. Patient does not offer or remember specific treatments or medications during this period of time. TREATMENT AND PROGRESS ON THE UNIT: Patient is again calm and appropriate with streetsweeper operator present. Patient not resistant to suggestions offered. Patient had stated in prior assessments that he was anxious, and he basically came here to rest. Patient repeats that he is the only one that can make himself feel better. When pt. asked on prior assessment if he has gotten notice of any SSD hearings pt. first refuses to answer and then states "No, I don't". Pt. appears upset that he was asked this question and feels it is personal and does not correspond to his stay here. He had previously told mental health worker FRANCES Schilling that he did have a hearing and wanted copies of all his records for this reason and that he needed this admission for that very reason. Patient on prior assessments has told the provider that he had no intention of participating or doing anything other than sleep when he was admitted this time. Continued to discuss with patient, strategies for improving his depression , anger and anxiety. Continued to review with patient appropriate behavior when he is discharged, effective use of a schedule, staying active. Pt. encouraged to continue similar schedule upon discharge to continue improved mental health. Pt. states understanding but not necessarily agreement. Pt. has contracted with provider that any subsequent readmission for similar reasons will trigger a review for appropriateness of care. Pt. understands that intermediate project manager care may be indicated. Pt. states understanding. MENTAL STATUS EXAMINATION ON DISCHARGE: Shredding Floor Equipment Operator is KIRSTY Garcia; Patient is a 55 year old male, looks older than his stated age, who is tall, unkempt, states he shaved last night, with a thin build. Of note, patient smelled of alcohol on admission. Patient had been confrontational, demanding, argumentative at prior assessments without streetsweeper operator. Pt. starts today's assessment with a smile and by saying "Hello". Speech: Is is of normal rate and volume. Patient is circumstantial, articulate, coherent and spontaneous. Thought processes: Clear, goal directed at times. Thought content: Rational, logical, no evidence of paranoia. Abstract reasoning: Adequate. Computation: Adequate. Associations: Intact. Abnormal or psychotic thoughts: Patient denies hallucinations, delusions, obsessions, compulsions, paranoia, homicidal or suicidal ideation. Patient is stable for discharge. Pt. states "I have no worries". Judgment: Fair. Insight: Fair. Oriented to: Person, place, time and surroundings. Recent and Remote Memory: "No, I think I am doing pretty good" per patient. Attention Span and Concentration: Fair. Patient again does not interrupt provider with streetsweeper operator present, goes off on tangents less with streetsweeper operator. Language: Normal. Fund of knowledge: Adequate. Mood: "Good, ", Appears to be able to control his behavior with streetsweeper operator. Affect: Appropriate, rational. TEST RESULTS DURING HOSPITALIZATION: See below. Pt. was ordered an EKG on admission, significant labs are his SGOT is low, patient UDS on admission was positive for amphetamines. Patient states he has never used amphetamines and does not know why this is positive. MEDICATIONS ON DISCHARGE: Please see below. Zyprexa 30 mg by mouth daily at bedtime, fluoxetine 40 mg by mouth every morning, trazodone 100 mg by mouth daily at bedtime when necessary for sleep. DIAGNOSES ON DISCHARGE: Major depressive disorder, Anxiety. FOLLOWUP ARRANGEMENTS: Patient to continue medications as above. Patient to follow-up with PCP upon discharge. Patient to start therapy/medication management upon discharge. Patient to maintain activity and socialization upon discharge. TIME SPENT: 25 minutes. Vital Signs Vital Sign - Last 24 Hours 03/06/16 03/07/16 18:00 06:35 Temp 96.8 97.4 Pulse 69 68 Resp 18 16 B/P 117/65 120/66 Medications Scheduled Fluoxetine Hcl (Fluoxetine HCl) 20 Mg Cap 40 MG PO QAM DEPRESSION Miconazole Nitrate (Desenex Shake Powder) 1 Dose/85 Gm Pow 1 DOSE TOP BID RASH Olanzapine (Olanzapine) 10 Mg Tab 30 MG PO QHS MOOD Scheduled PRN Trazodone HCl (Trazodone HCl) 50 Mg Tab 100 MG PO QHSP PRN PRN INSOMNIA Allergies Coded Allergies: Penicillins (Unverified Allergy, Unknown, ANAPHYLAXIS, 01/24/16) Shellfish Allergy (Unverified Allergy, Unknown, ANAPHYLAXIS, 01/24/16) MYKE YUNG NP Mar 07, 2016 10:09
== END 2016-03-07 13:00 | disposition home or self-care (01) | DRG 881 ==
LOC: M ED 18:56 → M PSY 20:13
PROVIDERS: ADMIT Psychiatry & Neurology Psychiatry; ATTEND Psychiatry & Neurology Psychiatry
DX: F32.9 Major depressive disorder, single episode, unspecified (principal); F41.9 Anxiety disorder, unspecified; Z79.899 Other long term (current) drug therapy; Z91.013 Allergy to seafood; B35.6 Tinea cruris; F17.200 Nicotine dependence, unspecified, uncomplicated

== ENCOUNTER → 2016-03-26 | Outpatient (REF) | payer MEDICARE ==
[~2016-03-26] MED LIST changes: +FLUO20CA9 PO; +MICO2POW TOP; +OLAN10TA2 PO; +PROZ40CA PO; +TRAZ100T4 PO; +TRAZO50TA PO; +VITA400C2 PO
== END ==
LOC: M SFHCPLAZ 13:20
PROVIDERS: ATTEND Family Medicine
DX: F32.9 Major depressive disorder, single episode, unspecified (principal); F17.200 Nicotine dependence, unspecified, uncomplicated; Z79.899 Other long term (current) drug therapy
CPT/HCPCS: 36415; 83036; G0463

== ENCOUNTER → 2016-05-09 | Outpatient (REF) | payer MEDICARE ==
[2016-05-09 13:41] LABS: ALBUMIN 3.9 GM/DL (3.2-5.2); ALKALINE PHOSPHATASE 87 U/L (45-117); ALT/SGPT 18 U/L (12-78); ANION GAP 6 MEQ/L (8-16); AST/SGOT 16 U/L (15-37); BILIRUBIN,TOTAL 0.6 MG/DL (0.2-1.0); BLOOD UREA NITROGEN 16 MG/DL (7-18); CALCIUM LEVEL 9.5 MG/DL (8.5-10.1); CARBON DIOXIDE LEVEL 30 MEQ/L (21-32); CHLORIDE LEVEL 104 MEQ/L (98-107); CHOLESTEROL LEVEL 218 MG/DL (<200); CREATININE FOR GFR 1.19 MG/DL (0.70-1.30); GLOMERULAR FILTRATION RATE > 60.0 (>56); GLUCOSE, FASTING 104 MG/DL (70-105); POTASSIUM SERUM 4.3 MEQ/L (3.5-5.1); SODIUM LEVEL 140 MEQ/L (136-145); TOTAL PROTEIN 6.9 GM/DL (6.4-8.2); TRIGLYCERIDES LEVEL 170 MG/DL (<150)
== END ==
LOC: M SFHCPLAZ 11:24
PROVIDERS: ATTEND Family Medicine
DX: Z13.220 Encounter for screening for lipoid disorders (principal); Z13.21 Encounter for screening for nutritional disorder; F17.200 Nicotine dependence, unspecified, uncomplicated; Z79.899 Other long term (current) drug therapy
CPT/HCPCS: 80053; 80061; 82306; G0463

== ENCOUNTER → 2016-06-18 | Outpatient (REF) | payer MEDICARE ==
[~2016-06-18] MED LIST changes: +FLUO20CA19 PO; -FLUO20CA9 PO; +TRAZ-136 PO; -TRAZ100T4 PO; -VITA400C2 PO; +VITA400C7 PO
[2016-06-18 16:47] LABS: ALBUMIN 3.8 GM/DL (3.2-5.2); ALBUMIN/GLOBULIN RATIO 1.31 (1.00-1.93); ALKALINE PHOSPHATASE 93 U/L (45-117); ALT/SGPT 21 U/L (12-78); ANION GAP 5 MEQ/L (8-16); AST/SGOT 14 U/L (15-37); BILIRUBIN,TOTAL 0.5 MG/DL (0.2-1.0); BLOOD UREA NITROGEN 15 MG/DL (7-18); CALCIUM LEVEL 8.9 MG/DL (8.5-10.1); CARBON DIOXIDE LEVEL 29 MEQ/L (21-32); CHLORIDE LEVEL 105 MEQ/L (98-107); CHOLESTEROL LEVEL 205 MG/DL (<200); CREATININE FOR GFR 1.13 MG/DL (0.70-1.30); GLOMERULAR FILTRATION RATE > 60.0 (>56); GLUCOSE, FASTING 94 MG/DL (70-105); POTASSIUM SERUM 4.3 MEQ/L (3.5-5.1); SODIUM LEVEL 139 MEQ/L (136-145); TOTAL PROTEIN 6.7 GM/DL (6.4-8.2); TRIGLYCERIDES LEVEL 149 MG/DL (<150)
== END ==
LOC: M SFHCPLAZ 12:07
PROVIDERS: ATTEND Family Medicine
DX: Z13.220 Encounter for screening for lipoid disorders (principal); Z13.21 Encounter for screening for nutritional disorder; Z12.11 Encounter for screening for malignant neoplasm of colon; Z23 Encounter for immunization; Z79.899 Other long term (current) drug therapy
CPT/HCPCS: 36415; 80053; 80061; 82306; 90732; G0009

== ENCOUNTER → 2016-06-25 | Outpatient (REF) | payer MEDICARE ==
[~2016-06-25] MED LIST changes: -FLUO20CA19 PO; +FLUO20CA9 PO; -TRAZ-136 PO; +TRAZ100T4 PO; +VITA400C2 PO; -VITA400C7 PO
== END ==
LOC: M SFHCPLAZ 17:11
PROVIDERS: ATTEND Family Medicine
DX: Z12.11 Encounter for screening for malignant neoplasm of colon (principal)

== ENCOUNTER → 2016-09-04 | Outpatient (REF) | payer MEDICARE, MEDICAID ==
[~2016-09-04] MED LIST changes: +FLUO20CA19 PO; -FLUO20CA9 PO; +TRAZ-136 PO; -TRAZ100T4 PO; -VITA400C2 PO; +VITA400C7 PO
== END ==
LOC: M LAB REF 17:19
PROVIDERS: ATTEND Surgery
DX: D48.5 Neoplasm of uncertain behavior of skin (principal)

== ENCOUNTER → 2016-12-10 | Outpatient (REF) | payer MEDICARE | LOC: M SFHCPLAZ 14:11 | PROVIDERS: ATTEND Family Medicine | DX: Z11.4 Encounter for screening for human immunodeficiency virus [HIV] (principal); Z13.1 Encounter for screening for diabetes mellitus; Z11.59 Encounter for screening for other viral diseases; Z23 Encounter for immunization; F17.210 Nicotine dependence, cigarettes, uncomplicated; F41.1 Generalized anxiety disorder; F31.9 Bipolar disorder, unspecified; Z79.899 Other long term (current) drug therapy ==

== ENCOUNTER → 2017-03-20 | Outpatient (CLI) | payer MEDICARE | LOC: M RAD 14:27 | DX: Z12.2 Encounter for screening for malignant neoplasm of respiratory organs (principal); Z87.891 Personal history of nicotine dependence | CPT/HCPCS: G0297 ==

== ENCOUNTER → 2017-09-02 | Outpatient (REF) | payer MEDICARE ==
[2017-09-02 19:20] LABS: ALBUMIN 3.7 GM/DL (3.2-5.2); ALBUMIN/GLOBULIN RATIO 1.19 (1.00-1.93); ALKALINE PHOSPHATASE 92 U/L (45-117); ALT/SGPT 23 U/L (12-78); ANION GAP 5 MEQ/L (8-16); AST/SGOT 14 U/L (7-37); BILIRUBIN,TOTAL 0.6 MG/DL (0.2-1.0); BLOOD UREA NITROGEN 18 MG/DL (7-18); CARBON DIOXIDE LEVEL 29 MEQ/L (21-32); CHLORIDE LEVEL 107 MEQ/L (98-107); CHOLESTEROL LEVEL 141 MG/DL (<200); CHOLESTEROL RISK RATIO 3.439 (<5); CREATININE FOR GFR 1.27 MG/DL (0.70-1.30); GLOMERULAR FILTRATION RATE > 60.0 (>56); GLUCOSE, FASTING 89 MG/DL (70-100); HDL CHOLESTEROL 41 MG/DL (>40); NON-HDL-C 100 MG/DL; POTASSIUM SERUM 4.5 MEQ/L (3.5-5.1); SODIUM LEVEL 141 MEQ/L (136-145); TOTAL PROTEIN 6.8 GM/DL (6.4-8.2); TRIGLYCERIDES LEVEL 145 MG/DL (<150)
[2017-09-02 19:27] LABS: ESTIMATED AVERAGE GLUCOSE 114 MG/DL (60-110); HEMOGLOBIN A1c 5.6 %
== END ==
LOC: M SFHCPLAZ 15:02
DX: Z12.11 Encounter for screening for malignant neoplasm of colon (principal); E78.5 Hyperlipidemia, unspecified; Z13.1 Encounter for screening for diabetes mellitus
CPT/HCPCS: 80053

== ENCOUNTER → 2018-01-13 | Outpatient (REF) | payer MEDICARE | LOC: M SFHCPLAZ 14:22 | DX: E66.9 Obesity, unspecified (principal); Z53.8 Procedure and treatment not carried out for other reasons ==

== ENCOUNTER → 2018-04-14 | Outpatient (REF) | payer MEDICARE ==
[~2018-04-14] MED LIST changes: -TRAZ-136 PO; +TRAZ-163 PO
[2018-04-14 16:09] LABS: HEMOGLOBIN A1c 5.8 %
== END ==
LOC: M SFHCPLAZ 14:25
PROVIDERS: ATTEND Family Medicine
DX: E66.9 Obesity, unspecified (principal)

== ENCOUNTER → 2018-04-21 | Outpatient (REF) | payer MEDICARE | LOC: M SFHCPLAZ 18:56 | PROVIDERS: ATTEND Family Medicine | DX: L57.0 Actinic keratosis (principal); F33.0 Major depressive disorder, recurrent, mild; F17.290 Nicotine dependence, other tobacco product, uncomplicated; E66.9 Obesity, unspecified; Z68.36 Body mass index [BMI] 36.0-36.9, adult | CPT/HCPCS: 11300; 17000; 17003; 88305; G0463 ==

== ENCOUNTER → 2018-10-13 | Outpatient (REF) | payer MEDICARE ==
[~2018-10-13] MED LIST changes: +TRAZ1TAB10 PO; -TRAZO50TA PO
== END ==
LOC: M SFHCPLAZ 17:07
PROVIDERS: ATTEND Dermatology
DX: L83 Acanthosis nigricans (principal); L82.1 Other seborrheic keratosis; L73.9 Follicular disorder, unspecified

== ENCOUNTER → 2018-11-24 | Outpatient (REF) | payer MEDICARE ==
[2018-11-24 18:28] LABS: CHOLESTEROL RISK RATIO 3.325 (<5)
== END ==
LOC: M SFHCPLAZ 15:11
PROVIDERS: ATTEND Family Medicine
DX: E78.00 Pure hypercholesterolemia, unspecified (principal)
CPT/HCPCS: 36415; 80061; G0463

== ENCOUNTER → 2018-12-05 | Outpatient (CLI) | payer MEDICARE ==
--- NOTE | 2018-12-05 18:41 | REP ---
CT chest without contrast: History: Nicotine dependence. Low-dose screening chest CT. Comparison CT a screening study March 20, 2017. CT findings: Preliminary digital service engine repairer radiograph is unremarkable. There are emphysematous changes in the upper lobes bilaterally. There is minimal linear fibrosis in the right middle lobe and in the lingula at the lung bases. This is unchanged. No pulmonary mass lesion or significant pulmonary nodule is appreciated. Impression: Lung RADS category 1 negative screening study. Repeat screening recommended 1 year. Electronically Signed by Humberto Asher MD 12/05/2018 07:52 P
== END ==
LOC: M RAD 15:24
PROVIDERS: ATTEND Family Medicine
DX: Z87.891 Personal history of nicotine dependence (principal); Z12.2 Encounter for screening for malignant neoplasm of respiratory organs

== ENCOUNTER → 2019-04-07 | Outpatient (REF) | payer MEDICARE ==
[~2019-04-07] MED LIST changes: -FLUO20CA19 PO; +FLUO20CA22 PO; -TRAZ-163 PO; +TRAZ-257 PO; -TRAZ10TA PO; +TRAZ1TAB12 PO
== END ==
LOC: M LAB REF 17:10
PROVIDERS: ATTEND Dermatology
DX: R21 Rash and other nonspecific skin eruption (principal)
CPT/HCPCS: 11104; 11900; 88305; 88313; J3301

== ENCOUNTER → 2019-04-29 | Outpatient (CLI) | payer MEDICARE ==
[~2019-04-29] MED LIST changes: +PROHANCE 279.3MG/ML 15ML VIAL (A9576) As Ordered ONE; +PROHANCE 279.3MG/ML 5ML VIAL (A9576) As Ordered ONE
--- NOTE | 2019-04-29 18:33 | REPVR ---
PROCEDURE INFORMATION: Exam: MR Lumbar Spine Without and With Contrast. Exam date and time: 04/29/2019 5:36 PM Age: 59 years old Clinical indication: Weakness; Additional info: Meralgia, paresthesia lower ext pretty TECHNIQUE: Imaging protocol: Multiplanar magnetic resonance images of the lumbar spine without and with intravenous contrast. Contrast material: PROHANCE; Contrast volume: 20 ml; Contrast route: IV; COMPARISON: No relevant prior studies available. FINDINGS: Vertebrae: Normal alignment. Diffuse degeneration in the lumbosacral spine. No acute compression fracture. Spinal cord: Conus medullaris is normal appearance at the L1 level. L1-L2: Minimal annular tear to the right of midline. Mild narrowing of the lateral recesses without compression of the exiting nerve roots. The neural foramina are only partially imaged but appear patent. L2-L3: Mildly bulging annulus and endplate degeneration narrow both lateral recesses which may affect the exiting L3 nerve roots. The neural foramina are patent. L3-L4: Mildly bulging annulus narrows the lateral recesses however there does not appear to be significant compression of the exiting L4 nerve roots. The neural foramina are patent. L4-L5: There is [id number] narrowing of the left neural foramen which may affect the left L4 nerve root. There is [id number] spinal canal stenosis due to a combination of mildly bulging annulus and degenerated at post facet joints. There is narrowing of both lateral recesses with likely compression of both exiting L5 nerve roots. L5-S1: No significant disc disease. No significant spinal canal stenosis. No neural foraminal stenosis. 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 Soft tissues: There is an infrarenal abdominal aortic aneurysm which is only partially imaged. It measures 4.6 cm in width. The anterior portion of the abdominal aorta is not included on the study. No abnormal contrast enhancement. IMPRESSION: 1. There is spinal canal stenosis at the L4-L5 level with narrowing of the lateral recesses and likely compression of the exiting L5 nerve roots. 2. Partially imaged infrarenal abdominal aortic aneurysm measuring 4.6 cm in width. Follow-up imaging in 6 months is recommended. In addition to planning follow-up imaging, one should also consider surgical or endovascular referral. Electronically signed by: Edie Lentz On 04/29/2019 18:32:51 PM
== END ==
LOC: M RAD 15:54
PROVIDERS: ATTEND Dermatology
DX: G57.13 Meralgia paresthetica, bilateral lower limbs (principal)
CPT/HCPCS: 72158; A9576

== ENCOUNTER → 2020-01-11 | Outpatient (CLI) | payer MEDICARE ==
[~2020-01-11] MED LIST changes: -PROHANCE 279.3MG/ML 15ML VIAL (A9576) As Ordered ONE; -PROHANCE 279.3MG/ML 5ML VIAL (A9576) As Ordered ONE
[2020-01-11 16:04] LABS: BLOOD UREA NITROGEN 15 MG/DL (7-18); GLOMERULAR FILTRATION RATE > 60.0 (>49)
== END ==
LOC: M LAB 14:41
PROVIDERS: ATTEND Surgery Vascular Surgery
DX: Z01.818 Encounter for other preprocedural examination (principal); I71.4 Abdominal aortic aneurysm, without rupture

== ENCOUNTER → 2020-01-12 | Outpatient (REF) | payer MEDICARE | LOC: M SFHCPLAZ 14:45 | PROVIDERS: ATTEND Family Medicine | DX: E78.00 Pure hypercholesterolemia, unspecified (principal); E66.9 Obesity, unspecified ==

== ENCOUNTER → 2020-01-13 | Outpatient (CLI) | payer MEDICARE ==
[~2020-01-13] MED LIST changes: +ISOVUE-370 76% 100ML VIAL As Ordered ONE
--- NOTE | 2020-01-13 14:03 | REP ---
INDICATION: AAA WITHOUT RUPTURE. COMPARISON: None TECHNIQUE: Axial contrast-enhanced images from the lung bases to the pubic symphysis using 100 cc Isovue 370 intravenous contrast material. Coronal and sagittal reformations obtained. This CT examination was performed using the following dose reduction techniques: Automated exposure control, adjustment of mA and/or kv according to the patient's size, and the use of iterative reconstruction technique. FINDINGS: A partially thrombosed infrarenal abdominal aortic aneurysm measures 4.9 x 4.6 cm maximal diameter and originates approximately 1.9 cm below the level of the renal arteries extending to the iliac bifurcation. The current examination demonstrates what appears to be thrombosed left common iliac artery as well as thrombosed right external iliac artery both of which demonstrate distal enhancement suggesting retrograde perfusion from collateral vessels. Significant partially calcified atheromatous plaquing identified of the abdominal aorta and bilateral iliac arteries extending to the visualized common femoral arteries. Liver, spleen, pancreas, bilateral adrenal glands and kidneys are normal. Evidence for prior cholecystectomy. The enteric system demonstrates colonic and sigmoid diverticulosis. No bowel obstruction or acute inflammatory process. Normal terminal ileum and appendix are identified in the right lower quadrant. Pelvis demonstrates normal bladder and age-appropriate prostate/seminal vesicles. No ascites. No free air. No intraperitoneal or retroperitoneal adenopathy. Musculoskeletal structures are intact and without acute osseous abnormality. IMPRESSION: 1. Infrarenal abdominal aortic aneurysm with findings as described above. Although the examination is not performed as an angiogram, there is suggestions for occlusion involving the left common iliac artery and right external iliac artery with subsequent revascularization to the distal arteries likely related to retrograde flow from collateral vessels. 2. Diverticulosis. <Electronically signed by Merrill Talbot > 01/13/20 [id number]
== END ==
LOC: M RAD 12:40
PROVIDERS: ATTEND Surgery Vascular Surgery
DX: I71.4 Abdominal aortic aneurysm, without rupture (principal)
CPT/HCPCS: 74177; Q9967

== ENCOUNTER → 2020-01-25 | Outpatient (CLI) | payer MEDICARE ==
[~2020-01-25] MED LIST changes: -ISOVUE-370 76% 100ML VIAL As Ordered ONE
[2020-01-25 15:52] LABS: ALBUMIN 3.9 GM/DL (3.2-5.2); ALT/SGPT 31 U/L (12-78); BILIRUBIN,TOTAL 0.6 MG/DL (0.2-1.0); BLOOD UREA NITROGEN 16 MG/DL (7-18); CALCIUM LEVEL 9.3 MG/DL (8.8-10.2); CARBON DIOXIDE LEVEL 31 MEQ/L (21-32); CHLORIDE LEVEL 109 MEQ/L (98-107); CHOLESTEROL LEVEL 162 MG/DL (<200); CHOLESTEROL RISK RATIO 3.306 (<5); CREATININE FOR GFR 1.22 MG/DL (0.70-1.30); GLOMERULAR FILTRATION RATE > 60.0 (>49); GLUCOSE, FASTING 91 MG/DL (70-100); HDL CHOLESTEROL 49 MG/DL (>40); LDL CHOLESTEROL 93 MG/DL (<100); NON-HDL-C 113 MG/DL; POTASSIUM SERUM 4.4 MEQ/L (3.5-5.1); SODIUM LEVEL 142 MEQ/L (136-145); TOTAL PROTEIN 6.9 GM/DL (6.4-8.2); TRIGLYCERIDES LEVEL 100 MG/DL (<150)
== END ==
LOC: M LAB 14:49
PROVIDERS: ATTEND Family Medicine
DX: E66.9 Obesity, unspecified (principal); E78.00 Pure hypercholesterolemia, unspecified

== ENCOUNTER → 2020-03-21 | Outpatient (CLI) | payer MEDICAID, MEDICARE ==
--- NOTE | 2020-03-21 16:59 | REP ---
INDICATION: LUNG SCREEING. COMPARISON: Comparison prior screening CT studies December 05, 2018 and 20 March 2017.. TECHNIQUE: Low-dose screening CT protocol. 3 mm axial images are provided at lung only windows. FINDINGS: Preliminary talent director view shows hyperinflation and clips in the right upper quadrant of the abdomen. Axial CT images show emphysematous changes in the upper lobes bilaterally unchanged. There is an area of pleural fibrosis on the right posteriorly. No pulmonary nodule or mass lesion is appreciated. There is some linear fibrosis in the right middle lobe unchanged from the 2018 study. Exam is otherwise unremarkable. IMPRESSION: Lung RADS category 1 findings. Repeat screening exam suggested in 1 year. <Electronically signed by Harlan Asher > 03/21/20 [id number]
== END ==
LOC: M RAD 13:58
PROVIDERS: ATTEND Family Medicine
DX: F17.210 Nicotine dependence, cigarettes, uncomplicated (principal)

== ENCOUNTER → 2020-09-14 | Outpatient (CLI) | payer MEDICARE ==
[~2020-09-14] MED LIST changes: +ISOVUE-370 76% 100ML VIAL As Ordered ONE; -OLAN10TA2 PO; -OLAN15TA PO; +OLAN15TA13 PO; +OLAN1TAB20 PO
--- NOTE | 2020-09-14 15:48 | REP ---
INDICATION: AAA COMPARISON: CT 01/13/2020 TECHNIQUE: CT angiogram of the abdomen and pelvis was performed with intravenous administration of 100 cc of Isovue 370, without oral contrast. 3D MIP reconstruction images and surface renderings presented. FINDINGS: Abdominal aorta: There is an infrarenal abdominal aortic aneurysm with fusiform configuration. When I measured at the exact same level as on previous study is currently 5 0.25 cm AP x 5.29 cm transverse. Previously was 4 5 by 5.1 cm at the same level. Patent channel is seen with large eccentric thrombus. I do not see evidence of a leak. There is no retroperitoneal hematoma. There is no evidence of dissection in the lower thoracic or abdominal aorta. There is diffuse atherosclerotic calcification common iliac and external iliac vessels. The right common iliac is patent and the left common iliac shows no flow the left and right internal iliacs demonstrate flow and there is no flow in the right external iliac but reconstitution of flow via internal iliac vessels on the right is a seen extending to the external iliac. There is reconstitution of the common femoral artery by collaterals in the inguinal region. The left common femoral artery in the inguinal region shows continuous flow from the external iliac. Lung bases: Clear Liver: Normal Gallbladder: Absent. Spleen: Normal. Adrenals: Normal. Pancreas: Normal. Kidneys: Normal. Small and large bowel: Scattered diverticula in the left colon and sigmoid without diverticulitis colitis stricture or mass. Small bowel loops are unremarkable. Stomach with small hiatal hernia. Free fluid: None. Adenopathy: None. Appendix: Not inflamed. Pelvis: Bladder unremarkable and without mass, wall thickening or stone. No pelvic free fluid a small inguinal hernia on the right with a knuckle of bowel extending to the proximal canal. No such finding on the left. A urachal remnant is seen from the anterior superior aspect of the bladder extending toward the umbilicus but not reaching it is not distended and represents anatomic variation. No ventral hernia. No inguinal adenopathy. No pelvic adenopathy. Osseous structures: Unremarkable. IMPRESSION: There is a fusiform infrarenal abdominal aortic aneurysm measuring up to 8.6 cm long within AP diameter of 5.25 and a transverse diameter of 5.29 cm increased from the previous study by my measurement at the same location from 5 x 5.1 cm AP by transverse. No leak. Extensive thrombus surrounding the patent channel. Atherosclerotic plaque. Extensive iliac vascular calcification with occlusion of the left common iliac and the right external iliac. Both internal iliacs show flow and reconstitution of the left external iliac and the right common femoral artery by collaterals noted. No other significant or acute finding. <Electronically signed by Ruben Aguiar > 09/14/20 [id number]
== END ==
LOC: M RAD 14:26
PROVIDERS: ATTEND Surgery Vascular Surgery
DX: I71.4 Abdominal aortic aneurysm, without rupture (principal)
CPT/HCPCS: 74174; Q9967

== ENCOUNTER → 2021-04-21 | Outpatient (CLI) | payer MEDICARE | LOC: M RAD 13:47 | PROVIDERS: ATTEND Family Medicine | DX: I71.4 Abdominal aortic aneurysm, without rupture (principal) | CPT/HCPCS: 74174; Q9967 ==

== ENCOUNTER → 2021-08-15 | Outpatient (CLI) | payer MEDICARE ==
[~2021-08-15] MED LIST changes: -ISOVUE-370 76% 100ML VIAL As Ordered ONE
[2021-08-15 15:42] LABS: ALBUMIN 3.5 GM/DL (3.2-5.2); ALT/SGPT 15 U/L (12-78); BILIRUBIN,TOTAL 0.3 MG/DL (0.2-1.0); BLOOD UREA NITROGEN 10 MG/DL (7-18); CALCIUM LEVEL 9.1 MG/DL (8.8-10.2); CARBON DIOXIDE LEVEL 28 MEQ/L (21-32); CHLORIDE LEVEL 110 MEQ/L (98-107); CHOLESTEROL LEVEL 104 MG/DL (<200); CREATININE FOR GFR 0.98 MG/DL (0.70-1.30); GLOMERULAR FILTRATION RATE > 60.0 (>49); GLUCOSE, FASTING 103 MG/DL (70-100); HDL CHOLESTEROL 37 MG/DL (>40); LDL CHOLESTEROL 48 MG/DL (<100); NON-HDL-C 67 MG/DL; POTASSIUM SERUM 4.1 MEQ/L (3.5-5.1); SODIUM LEVEL 142 MEQ/L (136-145); TOTAL PROTEIN 6.3 GM/DL (6.4-8.2); TRIGLYCERIDES LEVEL 96 MG/DL (<150)
[2021-08-15 16:07] LABS: HEMOGLOBIN A1c 4.9 %
== END ==
LOC: M PLALAB 12:38
PROVIDERS: ATTEND Student in an Organized Health Care Education/Training Program
DX: E78.00 Pure hypercholesterolemia, unspecified (principal); Z79.899 Other long term (current) drug therapy

== ENCOUNTER → 2021-09-15 | Outpatient (CLI) | payer MEDICARE | LOC: M RAD 14:18 | PROVIDERS: ATTEND Student in an Organized Health Care Education/Training Program | DX: Z12.2 Encounter for screening for malignant neoplasm of respiratory organs (principal) ==

== ENCOUNTER 2021-10-08 13:27 | Inpatient (IN) | payer MEDICARE ==
[~2021-10-08] VITALS: Ht 193 cm; Wt 88.5 kg
[2021-10-08] MEDS ORDERED: ISOVUE-370 76% 100ML VIAL As Ordered ONE (14:05)
[2021-10-08 14:36] LABS: BASO # 0.1 10^3/uL (0.0-0.2); BASO % 0.4 % (0.0-1.0); EOS % 0.3 % (0.0-3.0); HEMATOCRIT 43.8 % (42.0-52.0); HEMOGLOBIN 14.4 g/dl (13.5-17.5); LYMPH # 1.6 10^3/uL (1.5-5.0); MEAN CORPUSCULAR HEMOGLOBIN 30.2 pg (27.0-33.0); MEAN CORPUSCULAR HGB CONC 32.9 g/dl (32.0-36.5); MEAN CORPUSCULAR VOLUME 91.8 fl (80.0-96.0); MONO # 0.9 10^3/uL (0.0-0.8); MONO % 8.3 % (2.0-8.0); NEUTROPHILS # 8.6 10^3/uL (1.5-8.5); NEUTROPHILS % 76.6 % (36.0-66.0); PLATELET COUNT, AUTOMATED 202 10^3/uL (150-450); RED BLOOD COUNT 4.77 10^6/uL (4.30-6.10); WHITE BLOOD COUNT 11.2 10^3/uL (4.0-10.0)
[2021-10-08 14:49] LABS: PROTHROMBIN TIME 13.6 SECONDS (12.7-14.5)
[2021-10-08 14:50] LABS: PARTIAL THROMBOPLASTIN TIME 27.8 SECONDS (25.9-37.0)
[2021-10-08 14:58] LABS: ACETAMINOPHEN LEVEL < 2.0 UG/ML (10.0-30.0); ALBUMIN 3.4 GM/DL (3.2-5.2); ALT/SGPT 17 U/L (12-78); BILIRUBIN,DIRECT 0.2 MG/DL (0.0-0.2); BILIRUBIN,TOTAL 0.5 MG/DL (0.2-1.0); ETHYL ALCOHOL (ETHANOL) < 0.003 % (0.000-0.010); LIPASE 146 U/L (73-393); SALICYLATE LEVEL 4.4 MG/DL (5.0-30.0); THYROID STIMULATING HORMONE 0.738 uIU/ML (0.358-3.740); TOTAL PROTEIN 6.6 GM/DL (6.4-8.2)
[2021-10-08] MEDS ORDERED: OLAN15TA13 PO (20:43)
[2021-10-08] MEDS ORDERED: TRAZ1TAB12 PO (20:43)
[2021-10-08] MEDS ORDERED: FLUO40CA PO (20:43)
[2021-10-08] MEDS ORDERED: CLON0.5T2 PO (20:43)
[2021-10-08] MEDS ORDERED: ATOR1TAB21 PO (20:43)
[2021-10-08] MEDS ORDERED: HOME MED LIST COMPLETE! XX SCH (20:50)
[2021-10-08] MEDS ORDERED: traZODone 100 MG TAB PO ONE (22:05)
[2021-10-08] MEDS ORDERED: OLANZapine 10 MG TAB PO ONE (22:05)
[2021-10-09 10:54] LABS: AMPHETAMINES LEVEL URINE NEGATIVE (NEGATIVE); BARBITURATES URINE NEGATIVE (NEGATIVE); BENZODIAZEPINES URINE NEGATIVE (NEGATIVE); CANNABINOIDS URINE NEGATIVE (NEGATIVE); COCAINE METABOLITE URINE NEGATIVE (NEGATIVE); METHADONE URINE NEGATIVE (NEGATIVE); OPIATES URINE NEGATIVE (NEGATIVE); PHENCYCLIDINE URINE NEGATIVE (NEGATIVE)
[2021-10-09 12:07] LABS: RSV AMPLIFICATION NEGATIVE (NEGATIVE)
[2021-10-10] MEDS ORDERED: ACETAMINOPHEN TAB 650MG DOSE (2X325MG) PO ONE (06:30)
[2021-10-11] MEDS ORDERED: traZODone 50 MG TAB PO PRN (10:45)
[2021-10-11] MEDS ORDERED: traZODone 100 MG TAB PO PRN (10:45)
[2021-10-11] MEDS ORDERED: OLANZapine ORAL DISINTEGRATING TAB 5MG PO PRN (10:45)
[2021-10-11] MEDS ORDERED: MAALOX 30 ML SUSP *UDC PO PRN (10:45)
[2021-10-11] MEDS ORDERED: IBUPROFEN 400MG TAB PO PRN (10:45)
[2021-10-11] MEDS ORDERED: PILL CUTTER 1 EACH XX PRN (11:55)
[2021-10-11] MEDS: NICOTINE 21MG/24HR 1 EA TRANSDERMAL TD SCH ×2 (12:00→12:38)
[2021-10-11 12:18] LABS: RSV AMPLIFICATION NEGATIVE (NEGATIVE)
[2021-10-11] MEDS: ATORVASTATIN 20 MG TAB PO SCH (12:38)
[2021-10-11] MEDS: FLUoxetine 20MG CAP PO SCH (12:39)
[2021-10-11 14:19] VITALS: BP 102/64
[2021-10-11 18:00] VITALS: BP 112/67
[2021-10-11] MEDS: OLANZapine 10 MG TAB PO SCH (20:18)
[2021-10-11] MEDS: clonazePAM 0.5 MG TAB PO SCH (20:18)
[2021-10-11] MEDS: traZODone 100 MG TAB PO SCH (20:19)
[2021-10-12 06:44] VITALS: BP 114/54
[2021-10-12] MEDS: NICOTINE 21MG/24HR 1 EA TRANSDERMAL TD SCH (09:00)
[2021-10-12] MEDS: ATORVASTATIN 20 MG TAB PO SCH (09:12)
[2021-10-12] MEDS: FLUoxetine 20MG CAP PO SCH (09:12)
[2021-10-12 18:34] VITALS: BP 110/56
[2021-10-12 18:44] LABS: APPEARANCE, URINE MANUAL HAZY (CLEAR); COLOR, URINE MANUAL YELLOW (YELLOW)
[2021-10-12 18:45] LABS: BILIRUBIN, URINE MANUAL NEGATIVE (NEGATIVE); GLUCOSE, URINE (UA) MANUAL NEGATIVE (NEGATIVE); KETONE, URINE MANUAL NEGATIVE (NEGATIVE); PROTEIN, URINE MANUAL TRACE mg/dL (NEGATIVE); SPECIFIC GRAVITY,URINE MANUAL 1.025 (1.002-1.035); UROBILINOGEN, URINE MANUAL 1 MG mg/dl (NORMAL)
[2021-10-12 18:46] LABS: BLOOD URINE MANUAL NEGATIVE (NEGATIVE); LEUKOCYTE ESTERASE, URINE MAN NEGATIVE (NEGATIVE); NITRITE, URINE MANUAL NEGATIVE (NEGATIVE)
[2021-10-12 19:02] LABS: BACTERIA, URINE NONE SEEN; CALCIUM OXALATE CRYSTALS,URINE SMALL AMOUNT /hpf; HYALINE CAST, URINE NONE SEEN /lpf (0-1); RBC, URINE NONE SEEN /hpf (0-3); SQUAMOUS EPITHELIAL CELL URINE NONE SEEN /hpf (SMALL AMT); WBC, URINE NONE SEEN /hpf (0-3)
[2021-10-12] MEDS: clonazePAM 0.5 MG TAB PO SCH (19:59)
[2021-10-12] MEDS: traZODone 100 MG TAB PO SCH (19:59)
[2021-10-12] MEDS: OLANZapine 10 MG TAB PO SCH (20:00)
[2021-10-13 06:20] VITALS: BP 147/62
[2021-10-13 07:55] LABS: CHOLESTEROL RISK RATIO 2.902 (<5)
[2021-10-13] MEDS: NICOTINE 21MG/24HR 1 EA TRANSDERMAL TD SCH (09:00)
[2021-10-13] MEDS: ATORVASTATIN 20 MG TAB PO SCH (09:55)
[2021-10-13] MEDS: buPROPion **XL** TABLET 150MG (WELLBUTRIN XL) PO SCH (09:56)
[2021-10-13 19:11] VITALS: BP 134/54
[2021-10-13] MEDS: traZODone 100 MG TAB PO SCH (20:06)
[2021-10-13] MEDS: OLANZapine 10 MG TAB PO SCH (20:07)
[2021-10-13] MEDS: clonazePAM 0.5 MG TAB PO SCH (20:07)
[2021-10-14 06:32] VITALS: BP 118/55
[2021-10-14] MEDS: NICOTINE 21MG/24HR 1 EA TRANSDERMAL TD SCH (09:00)
[2021-10-14] MEDS: buPROPion **XL** TABLET 150MG (WELLBUTRIN XL) PO SCH (09:36)
[2021-10-14] MEDS: ATORVASTATIN 20 MG TAB PO SCH (09:36)
[2021-10-14] MEDS: MOM 30ML SUSPENSION UDC PO PRN (20:10)
[2021-10-14] MEDS: clonazePAM 0.5 MG TAB PO SCH (20:11)
[2021-10-14] MEDS: traZODone 100 MG TAB PO SCH (20:11)
[2021-10-14] MEDS: OLANZapine 10 MG TAB PO SCH (20:11)
[2021-10-15 06:22] VITALS: BP 111/52
[2021-10-15] MEDS: ATORVASTATIN 20 MG TAB PO SCH (08:48)
[2021-10-15] MEDS: buPROPion **XL** TABLET 150MG (WELLBUTRIN XL) PO SCH (08:48)
[2021-10-15 19:54] VITALS: BP 102/54
[2021-10-15] MEDS: traZODone 100 MG TAB PO SCH (20:19)
[2021-10-15] MEDS: clonazePAM 0.5 MG TAB PO SCH (20:19)
[2021-10-15] MEDS: OLANZapine 10 MG TAB PO SCH (20:19)
[2021-10-16 06:22] VITALS: BP 121/69
[2021-10-16] MEDS: ATORVASTATIN 20 MG TAB PO SCH (09:24)
[2021-10-16] MEDS: buPROPion **XL** TABLET 150MG (WELLBUTRIN XL) PO SCH (09:24)
[2021-10-16 16:44] VITALS: BP 109/56
[2021-10-16] MEDS: OLANZapine 10 MG TAB PO SCH (20:07)
[2021-10-16] MEDS: traZODone 100 MG TAB PO SCH (20:07)
[2021-10-16] MEDS: clonazePAM 0.5 MG TAB PO SCH (20:07)
[2021-10-17 06:22] VITALS: BP 108/54
[2021-10-17] MEDS: buPROPion **XL** TABLET 150MG (WELLBUTRIN XL) PO SCH (08:26)
[2021-10-17] MEDS: ATORVASTATIN 20 MG TAB PO SCH (08:26)
[2021-10-17 16:59] VITALS: BP 100/54
[2021-10-17] MEDS: MOM 30ML SUSPENSION UDC PO PRN (20:40)
[2021-10-17] MEDS: clonazePAM 0.5 MG TAB PO SCH (20:41)
[2021-10-17] MEDS: traZODone 100 MG TAB PO SCH (20:42)
[2021-10-17] MEDS: OLANZapine 10 MG TAB PO SCH (20:42)
[2021-10-18 07:22] VITALS: BP 111/55
[2021-10-18] MEDS: buPROPion **XL** TABLET 150MG (WELLBUTRIN XL) PO SCH (08:38)
[2021-10-18] MEDS: ATORVASTATIN 20 MG TAB PO SCH (08:38)
[2021-10-18 16:40] VITALS: BP 94/68
[2021-10-18] MEDS: clonazePAM 0.5 MG TAB PO SCH (20:09)
[2021-10-18] MEDS: traZODone 100 MG TAB PO SCH (20:10)
[2021-10-18] MEDS ORDERED: OLANZapine 10 MG TAB PO SCH (21:00)
[2021-10-19 07:09] VITALS: BP 103/51
[2021-10-19] MEDS: buPROPion **XL** TABLET 150MG (WELLBUTRIN XL) PO SCH (08:46)
[2021-10-19] MEDS: ATORVASTATIN 20 MG TAB PO SCH (08:46)
[2021-10-19 10:24] VITALS: BP_SYST 100; BP_SYST 84; BP_SYST 91; BP_DIAS 50; BP_DIAS 56
[2021-10-19 10:44] LABS: BLOOD UREA NITROGEN 18 MG/DL (7-18); CALCIUM LEVEL 9.6 MG/DL (8.8-10.2); CARBON DIOXIDE LEVEL 29 MEQ/L (21-32); CHLORIDE LEVEL 106 MEQ/L (98-107); CREATININE FOR GFR 1.25 MG/DL (0.70-1.30); GLOMERULAR FILTRATION RATE > 60.0 (>49); GLUCOSE, FASTING 104 MG/DL (70-100); POTASSIUM SERUM 3.9 MEQ/L (3.5-5.1); SODIUM LEVEL 140 MEQ/L (136-145)
[2021-10-19 18:28] VITALS: BP 98/58
[2021-10-19] MEDS: clonazePAM 0.5 MG TAB PO SCH (20:05)
[2021-10-19] MEDS ORDERED: traZODone 100 MG TAB PO SCH (21:00)
[2021-10-20 06:35] VITALS: BP 106/55
[2021-10-20 08:58] VITALS: BP 80/48
[2021-10-20 09:47] VITALS: BP 109/57
[2021-10-20] MEDS: buPROPion **XL** TABLET 150MG (WELLBUTRIN XL) PO SCH (10:21)
[2021-10-20] MEDS: ATORVASTATIN 20 MG TAB PO SCH (10:21)
[2021-10-20 16:28] VITALS: BP 107/53
[2021-10-20] MEDS: traZODone 25MG PER 1/2 TABLET PO SCH (20:16)
[2021-10-20] MEDS: clonazePAM 0.5 MG TAB PO SCH (20:17)
[2021-10-21 06:31] VITALS: BP 109/52
[2021-10-21] MEDS: buPROPion **XL** TABLET 150MG (WELLBUTRIN XL) PO SCH (08:40)
[2021-10-21] MEDS: ATORVASTATIN 20 MG TAB PO SCH (08:40)
[2021-10-21 16:17] VITALS: BP 103/55
[2021-10-21] MEDS: traZODone 25MG PER 1/2 TABLET PO SCH (20:36)
[2021-10-21] MEDS: clonazePAM 0.5 MG TAB PO SCH (20:37)
[2021-10-22 06:16] VITALS: BP 117/53
[2021-10-22] MEDS: buPROPion **XL** TABLET 150MG (WELLBUTRIN XL) PO SCH (08:09)
[2021-10-22] MEDS: ATORVASTATIN 20 MG TAB PO SCH (08:09)
[2021-10-22] MEDS ORDERED: ARIPiprazole MONOHYDRATE 400 MG INJ (ABILIFY)(FREE PSY INPT ONLY) IM ONE (10:00)
[2021-10-22 16:20] VITALS: BP 105/58
[2021-10-22] MEDS: clonazePAM 0.5 MG TAB PO SCH (20:07)
[2021-10-22] MEDS: MOM 30ML SUSPENSION UDC PO PRN (20:08)
[2021-10-22] MEDS: traZODone 25MG PER 1/2 TABLET PO SCH (20:08)
[2021-10-23 06:03] VITALS: BP 103/48
[2021-10-23] MEDS: buPROPion **XL** TABLET 150MG (WELLBUTRIN XL) PO SCH (08:39)
[2021-10-23] MEDS: ATORVASTATIN 20 MG TAB PO SCH (08:39)
[2021-10-23 18:21] VITALS: BP 108/53
[2021-10-23] MEDS: clonazePAM 0.5 MG TAB PO SCH (20:11)
[2021-10-23] MEDS: traZODone 25MG PER 1/2 TABLET PO SCH (20:11)
[2021-10-24 06:18] VITALS: BP 101/50
[2021-10-24] MEDS: buPROPion **XL** TABLET 150MG (WELLBUTRIN XL) PO SCH (08:37)
[2021-10-24] MEDS: ATORVASTATIN 20 MG TAB PO SCH (08:37)
[2021-10-24] MEDS ORDERED: BUPR150T12 PO (09:22)
[2021-10-24] MEDS ORDERED: TRAZ-252 PO (09:22)
[2021-10-24] MEDS ORDERED: ABIL1INJ2 IM (09:22)
[2021-10-24] MEDS ORDERED: ABIL10TA9 PO (09:24)
== END 2021-10-24 11:29 | disposition home or self-care (01) | DRG 885 ==
LOC: M ED 13:27 → EDBD 13:27 → M ED INP 10-11 10:45 → M PSY 10-11 13:25
PROVIDERS: ADMIT Student in an Organized Health Care Education/Training Program; ATTEND Student in an Organized Health Care Education/Training Program
DX: F31.30 Bipolar disorder, current episode depressed, mild or moderate severity, unspecified (principal); F17.200 Nicotine dependence, unspecified, uncomplicated; Z91.14 Patient's other noncompliance with medication regimen; Z88.0 Allergy status to penicillin; Z91.013 Allergy to seafood; F41.9 Anxiety disorder, unspecified; G47.00 Insomnia, unspecified; Z79.899 Other long term (current) drug therapy

== ENCOUNTER → 2021-11-29 | Outpatient (CLI) | payer MEDICARE ==
[~2021-11-29] MED LIST changes: +ABIL10TA9 PO; +ABIL1INJ2 IM; +ATOR1TAB21 PO; +BUPR150T12 PO; +CLON0.5T2 PO; +TRAZ-252 PO
== END ==
LOC: M WHC 15:00
PROVIDERS: ATTEND Student in an Organized Health Care Education/Training Program
DX: N50.89 Other specified disorders of the male genital organs (principal)

== ENCOUNTER → 2021-12-21 | Outpatient (CLI) | payer MEDICARE ==
[2021-12-21 16:55] LABS: BLOOD UREA NITROGEN 10 MG/DL (7-18); CREATININE FOR GFR 1.08 MG/DL (0.70-1.30); GLOMERULAR FILTRATION RATE > 60.0 (>49)
== END ==
LOC: M LAB 15:11
PROVIDERS: ATTEND Surgery Vascular Surgery
DX: I71.43 Infrarenal abdominal aortic aneurysm, without rupture (principal)

== ENCOUNTER → 2022-02-05 | Outpatient (CLI) | payer MEDICARE | LOC: M PLAIMG 15:52 | PROVIDERS: ATTEND Student in an Organized Health Care Education/Training Program | DX: J18.9 Pneumonia, unspecified organism (principal) ==

== ENCOUNTER 2022-04-25 15:39 | Inpatient (IN) | payer MEDICARE ==
[~2022-04-25] VITALS: Ht 195.6 cm; Wt 96.4 kg
[2022-04-25] MEDS ORDERED: NS 1,000 ML IV ONE (17:40)
[2022-04-25] MEDS ORDERED: ISOVUE-370 76% 100ML VIAL As Ordered ONE (18:12)
[2022-04-25 18:16] LABS: BASO % 0.4 % (0.0-1.0); EOS % 0.2 % (0.0-3.0); HEMATOCRIT 40.2 % (42.0-52.0); HEMOGLOBIN 13.1 g/dl (13.5-17.5); LYMPH # 1.1 10^3/uL (1.5-5.0); LYMPH % 10.1 % (24.0-44.0); MEAN CORPUSCULAR HEMOGLOBIN 31.6 pg (27.0-33.0); MEAN CORPUSCULAR HGB CONC 32.6 g/dl (32.0-36.5); MEAN CORPUSCULAR VOLUME 97.1 fl (80.0-96.0); MONO # 0.7 10^3/uL (0.0-0.8); MONO % 6.3 % (2.0-8.0); NEUTROPHILS # 9.3 10^3/uL (1.5-8.5); NEUTROPHILS % 82.6 % (36.0-66.0); PLATELET COUNT, AUTOMATED 172 10^3/uL (150-450); RED BLOOD COUNT 4.14 10^6/uL (4.30-6.10); WHITE BLOOD COUNT 11.3 10^3/uL (4.0-10.0)
[2022-04-25 18:30] LABS: INR 0.99; PARTIAL THROMBOPLASTIN TIME 27.7 SECONDS (24.8-34.2); PROTHROMBIN TIME 13.3 SECONDS (12.5-14.5)
[2022-04-25 18:34] LABS: ALBUMIN 3.7 G/DL (3.2-5.2); BILIRUBIN,DIRECT 0.3 MG/DL (<0.4); BILIRUBIN,TOTAL 0.9 MG/DL (0.3-1.2); TOTAL PROTEIN 6.2 G/DL (5.7-8.2)
[2022-04-25] MEDS ORDERED: CLON0.25 PO (19:32)
[2022-04-25] MEDS ORDERED: TRAZ-257 PO (19:32)
[2022-04-25] MEDS ORDERED: OLAN1TAB20 PO (20:52)
[2022-04-25] MEDS ORDERED: CLON0.5T2 PO (20:52)
[2022-04-25] MEDS ORDERED: HOME MED LIST COMPLETE! XX SCH (20:55)
[2022-04-25 21:08] LABS: RSV AMPLIFICATION NEGATIVE (NEGATIVE)
[2022-04-25 21:46] LABS: GC DNA AMPLIFICATION NEGATIVE (NEGATIVE)
[2022-04-25 23:32] VITALS: BP 118/56
[2022-04-26 00:13] LABS: HEMATOCRIT 34.4 % (42.0-52.0); HEMOGLOBIN 11.3 g/dl (13.5-17.5)
[2022-04-26] MEDS ORDERED: PILL CUTTER 1 EACH XX PRN (00:15)
[2022-04-26] MEDS: traZODone 100 MG TAB PO SCH ×2 (00:27→20:54)
[2022-04-26] MEDS: clonazePAM 0.5 MG TAB PO SCH ×2 (00:28→20:55)
[2022-04-26] MEDS: PANTOPRAZOLE 40MG VIAL IV SCH ×3 (00:28→20:55)
[2022-04-26] MEDS: NS 1,000 ML IV SCH ×2 (00:28→05:53)
[2022-04-26] MEDS: OLANZapine 10 MG TAB PO SCH ×2 (01:23→20:54)
[2022-04-26 04:00] VITALS: BP 117/57
[2022-04-26 04:24] LABS: BASO % 0.8 % (0.0-1.0); EOS # 0.1 10^3/uL (0.0-0.5); EOS % 2.6 % (0.0-3.0); HEMATOCRIT 34.9 % (42.0-52.0); HEMOGLOBIN 11.7 g/dl (13.5-17.5); LYMPH # 1.4 10^3/uL (1.5-5.0); LYMPH % 27.2 % (24.0-44.0); MEAN CORPUSCULAR HEMOGLOBIN 31.9 pg (27.0-33.0); MEAN CORPUSCULAR HGB CONC 33.5 g/dl (32.0-36.5); MEAN CORPUSCULAR VOLUME 95.1 fl (80.0-96.0); MONO # 0.5 10^3/uL (0.0-0.8); NEUTROPHILS # 3.1 10^3/uL (1.5-8.5); NEUTROPHILS % 59.2 % (36.0-66.0); PLATELET COUNT, AUTOMATED 146 10^3/uL (150-450); RED BLOOD COUNT 3.67 10^6/uL (4.30-6.10); WHITE BLOOD COUNT 5.3 10^3/uL (4.0-10.0)
[2022-04-26 04:51] LABS: ALBUMIN 3.1 G/DL (3.2-5.2); ALKALINE PHOSPHATASE 75 U/L (46-116); ALT/SGPT 14 U/L (7.0-40); AST/SGOT 20 U/L (<34); BILIRUBIN,TOTAL 1.3 MG/DL (0.3-1.2); BLOOD UREA NITROGEN 7 MG/DL (9-23); CALCIUM LEVEL 8.8 MG/DL (8.3-10.6); CARBON DIOXIDE LEVEL 27 MMOL/L (20-31); CHLORIDE LEVEL 110 MMOL/L (98-107); CREATININE FOR GFR 0.84 MG/DL (0.70-1.30); GLOMERULAR FILTRATION RATE > 60.0 (>49); GLUCOSE, FASTING 92 MG/DL (74-106); MAGNESIUM LEVEL 1.7 MG/DL (1.8-2.4); POTASSIUM SERUM 3.7 MMOL/L (3.5-5.1); SODIUM LEVEL 141 MMOL/L (136-145)
[2022-04-26 05:06] LABS: TOTAL PROTEIN 5.3 G/DL (5.7-8.2)
[2022-04-26] MEDS ORDERED: MAG SULF 1GM/100ML (MAG RUN) 1 GM in IV 1 EA IV ONE (07:45)
[2022-04-26 07:57] LABS: HEMATOCRIT 35.9 % (42.0-52.0); HEMOGLOBIN 12.2 g/dl (13.5-17.5)
[2022-04-26 08:00] VITALS: BP 130/60
[2022-04-26] MEDS: ATORVASTATIN 20 MG TAB PO SCH (08:59)
[2022-04-26 11:51] LABS: HEMATOCRIT 39.5 % (42.0-52.0); HEMOGLOBIN 12.6 g/dl (13.5-17.5)
[2022-04-26 12:00] VITALS: BP 133/67
[2022-04-26 16:00] VITALS: BP 127/60
[2022-04-26] MEDS ORDERED: GOLYTELY SOLN 4000 ML BTL PO ONE (18:00)
[2022-04-26 20:47] VITALS: BP 132/73
[2022-04-26 23:56] VITALS: BP 139/72
[2022-04-27 04:51] VITALS: BP 122/58
[2022-04-27] MEDS ORDERED: GOLYTELY SOLN 4000 ML BTL PO ONE (05:00)
[2022-04-27] MEDS ORDERED: MAG SULF 1GM/100ML (MAG RUN) 1 GM in IV 1 EA IV ONE ×2 (07:05→11:00)
[2022-04-27] MEDS: PANTOPRAZOLE 40MG VIAL IV SCH ×2 (07:43→09:20)
[2022-04-27] MEDS: ATORVASTATIN 20 MG TAB PO SCH (07:44)
[2022-04-27 07:58] VITALS: BP 123/63
[2022-04-27 09:46] LABS: BASO % 0.6 % (0.0-1.0); EOS # 0.1 10^3/uL (0.0-0.5); EOS % 1.5 % (0.0-3.0); HEMATOCRIT 35.8 % (42.0-52.0); HEMOGLOBIN 11.8 g/dl (13.5-17.5); LYMPH # 0.8 10^3/uL (1.5-5.0); LYMPH % 17.3 % (24.0-44.0); MEAN CORPUSCULAR HEMOGLOBIN 31.8 pg (27.0-33.0); MEAN CORPUSCULAR VOLUME 96.5 fl (80.0-96.0); MONO # 0.4 10^3/uL (0.0-0.8); NEUTROPHILS # 3.4 10^3/uL (1.5-8.5); NEUTROPHILS % 71.4 % (36.0-66.0); PLATELET COUNT, AUTOMATED 152 10^3/uL (150-450); RED BLOOD COUNT 3.71 10^6/uL (4.30-6.10); WHITE BLOOD COUNT 4.8 10^3/uL (4.0-10.0)
[2022-04-27 10:10] LABS: BLOOD UREA NITROGEN 5 MG/DL (9-23); CALCIUM LEVEL 8.8 MG/DL (8.3-10.6); CARBON DIOXIDE LEVEL 28 MMOL/L (20-31); CHLORIDE LEVEL 107 MMOL/L (98-107); GLOMERULAR FILTRATION RATE > 60.0 (>49); GLUCOSE, FASTING 82 MG/DL (74-106); MAGNESIUM LEVEL 1.7 MG/DL (1.8-2.4); POTASSIUM SERUM 3.6 MMOL/L (3.5-5.1); SODIUM LEVEL 142 MMOL/L (136-145)
[2022-04-27] MEDS ORDERED: PANT40TA29 PO (11:19)
[2022-04-27 11:44] VITALS: BP 112/55
[2022-04-27 12:19] LABS: HEMATOCRIT 34.7 % (42.0-52.0); HEMOGLOBIN 11.6 g/dl (13.5-17.5)
[2022-04-27] MEDS ORDERED: propofoL 500 MG/50 ML VIAL As Ordered ONE (14:33)
[2022-04-27 16:00] VITALS: BP 124/79
== END 2022-04-27 17:18 | disposition home or self-care (01) | DRG 394 ==
LOC: M ED 15:39 → M PCU 21:49 → M ED 22:39
PROVIDERS: ADMIT Family Medicine; ATTEND Internal Medicine
PROC: 0DBK8ZX Excision of Ascending Colon, Via Natural or Artificial Opening Endoscopic, Diagnostic (ICD-10-PCS; principal; 2022-04-27 14:15)
DX: K64.8 Other hemorrhoids (principal); K62.5 Hemorrhage of anus and rectum; K57.30 Diverticulosis of large intestine without perforation or abscess without bleeding; F31.9 Bipolar disorder, unspecified; E78.00 Pure hypercholesterolemia, unspecified; E78.5 Hyperlipidemia, unspecified; F41.9 Anxiety disorder, unspecified; K62.89 Other specified diseases of anus and rectum; K64.4 Residual hemorrhoidal skin tags; Z88.0 Allergy status to penicillin; Z91.013 Allergy to seafood; Z79.899 Other long term (current) drug therapy; D12.2 Benign neoplasm of ascending colon

== ENCOUNTER → 2022-08-07 | Outpatient (CLI) | payer MEDICARE ==
[~2022-08-07] MED LIST changes: +CLON0.25 PO; +PANT40TA29 PO
[2022-08-07 15:56] LABS: BASO % 0.4 % (0.0-1.0); EOS # 0.1 10^3/uL (0.0-0.5); EOS % 0.8 % (0.0-3.0); HEMOGLOBIN 13.9 g/dl (13.5-17.5); LYMPH # 1.2 10^3/uL (1.5-5.0); LYMPH % 16.5 % (24.0-44.0); MEAN CORPUSCULAR HEMOGLOBIN 30.9 pg (27.0-33.0); MEAN CORPUSCULAR HGB CONC 33.1 g/dl (32.0-36.5); MEAN CORPUSCULAR VOLUME 93.3 fl (80.0-96.0); MONO # 0.6 10^3/uL (0.0-0.8); MONO % 7.9 % (2.0-8.0); NEUTROPHILS # 5.2 10^3/uL (1.5-8.5); NEUTROPHILS % 74.1 % (36.0-66.0); PLATELET COUNT, AUTOMATED 168 10^3/uL (150-450); WHITE BLOOD COUNT 7.1 10^3/uL (4.0-10.0)
[2022-08-07 16:03] LABS: ALBUMIN 3.9 G/DL (3.2-5.2); ALKALINE PHOSPHATASE 85 U/L (46-116); ALT/SGPT 17 U/L (7.0-40); AST/SGOT 14 U/L (<34); BLOOD UREA NITROGEN 16 MG/DL (9-23); CALCIUM LEVEL 9.4 MG/DL (8.3-10.6); CARBON DIOXIDE LEVEL 28 MMOL/L (20-31); CHLORIDE LEVEL 107 MMOL/L (98-107); CHOLESTEROL LEVEL 117 MG/DL (<200); CHOLESTEROL RISK RATIO 2.57 (<5); GLOMERULAR FILTRATION RATE > 60.0 (>49); GLUCOSE, FASTING 91 MG/DL (74-106); HDL CHOLESTEROL 45.5 MG/DL (>40); LDL CHOLESTEROL 48.9 MG/DL (<100); MAGNESIUM LEVEL 1.8 MG/DL (1.8-2.4); NON-HDL-C 71.5 MG/DL; POTASSIUM SERUM 4.1 MMOL/L (3.5-5.1); SODIUM LEVEL 140 MMOL/L (136-145); TOTAL PROTEIN 6.3 G/DL (5.7-8.2); TRIGLYCERIDES LEVEL 113 MG/DL (<150)
[2022-08-07 16:05] LABS: FREE T4 0.99 NG/DL (0.89-1.76); THYROID STIMULATING HORMONE 0.585 uIU/ML (0.55-4.78)
[2022-08-07 17:53] LABS: HEMOGLOBIN A1c 5.4 % (4.0-6.0)
== END ==
LOC: M PLALAB 13:46
PROVIDERS: ATTEND Student in an Organized Health Care Education/Training Program
DX: E78.00 Pure hypercholesterolemia, unspecified (principal); F31.70 Bipolar disorder, currently in remission, most recent episode unspecified; K64.8 Other hemorrhoids; Z13.1 Encounter for screening for diabetes mellitus; Z13.29 Encounter for screening for other suspected endocrine disorder; Z79.899 Other long term (current) drug therapy

== ENCOUNTER → 2022-10-15 | Outpatient (CLI) | payer MEDICARE, MEDICAID | LOC: M RAD 14:21 | PROVIDERS: ATTEND Student in an Organized Health Care Education/Training Program | DX: Z12.2 Encounter for screening for malignant neoplasm of respiratory organs (principal); F17.210 Nicotine dependence, cigarettes, uncomplicated ==

== ENCOUNTER → 2023-05-13 | Outpatient (REF) | payer MEDICARE, MEDICAID | LOC: M SFHCDERM 17:50 | PROVIDERS: ATTEND Physician Assistant | DX: D48.9 Neoplasm of uncertain behavior, unspecified (principal) ==

== ENCOUNTER → 2023-07-30 | Outpatient (CLI) | payer MEDICARE ==
[~2023-07-30] MED LIST changes: +FLUO-365 PO; -FLUO20CA22 PO
[2023-07-30 18:02] LABS: HEMATOCRIT 44.6 % (42.0-52.0); HEMOGLOBIN 14.6 g/dl (13.5-17.5); MEAN CORPUSCULAR HEMOGLOBIN 32.2 pg (27.0-33.0); MEAN CORPUSCULAR HGB CONC 32.7 g/dl (32.0-36.5); MEAN CORPUSCULAR VOLUME 98.5 fl (80.0-96.0); PLATELET COUNT, AUTOMATED 155 10^3/uL (150-450); RED BLOOD COUNT 4.53 10^6/uL (4.30-6.10); WHITE BLOOD COUNT 6.6 10^3/uL (4.0-10.0)
[2023-07-30 18:10] LABS: HEMOGLOBIN A1c 5.2 % (4.0-6.0)
[2023-07-30 18:27] LABS: PSA SCREENING 1.22 NG/ML (< 4.00)
[2023-07-30 18:29] LABS: BLOOD UREA NITROGEN 15 MG/DL (9-23); CALCIUM LEVEL 9.7 MG/DL (8.3-10.6); CARBON DIOXIDE LEVEL 32 MMOL/L (20-31); CHLORIDE LEVEL 108 MMOL/L (98-107); CHOLESTEROL LEVEL 106 MG/DL (<200); CHOLESTEROL RISK RATIO 2.63 (<5); GLOMERULAR FILTRATION RATE > 60.0 (>49); GLUCOSE, FASTING 84 MG/DL (74-106); HDL CHOLESTEROL 40.2 MG/DL (>40); LDL CHOLESTEROL 39.2 MG/DL (<100); NON-HDL-C 65.8 MG/DL; POTASSIUM SERUM 4.2 MMOL/L (3.5-5.1); SODIUM LEVEL 142 MMOL/L (136-145); TRIGLYCERIDES LEVEL 133 MG/DL (<150)
== END ==
LOC: M PLALAB 14:29
PROVIDERS: ATTEND Student in an Organized Health Care Education/Training Program
DX: E78.00 Pure hypercholesterolemia, unspecified (principal); Z12.5 Encounter for screening for malignant neoplasm of prostate; Z13.1 Encounter for screening for diabetes mellitus

== ENCOUNTER → 2024-04-02 | Outpatient (CLI) | payer MEDICAID, MEDICARE ==
[~2024-04-02] MED LIST changes: -OLAN15TA13 PO; +OLAN15TA69 PO
== END ==
LOC: M RAD 14:57
DX: Z12.2 Encounter for screening for malignant neoplasm of respiratory organs (principal); Z87.891 Personal history of nicotine dependence

== ENCOUNTER → 2024-12-18 | Outpatient (CLI) | payer MEDICARE ==
[2024-12-18 17:53] LABS: BASO # 0.0 10^3/uL (0.0-0.2); BASO % 0.4 % (0.0-1.0); EOS # 0.0 10^3/uL (0.0-0.5); EOS % 0.5 % (0.0-3.0); LYMPH # 1.3 10^3/uL (1.5-5.0); LYMPH % 16.9 % (24.0-44.0); MONO # 0.6 10^3/uL (0.0-0.8); MONO % 7.6 % (2.0-8.0); NEUTROPHILS # 5.9 10^3/uL (1.5-8.5); NEUTROPHILS % 74.5 % (36.0-66.0); PLATELET COUNT, AUTOMATED 173 10^3/uL (150-450)
[2024-12-18 18:21] LABS: CALCIUM LEVEL 9.2 MG/DL (8.3-10.6); CARBON DIOXIDE LEVEL 29.0 MMOL/L (20-31); CHLORIDE LEVEL 105.0 MMOL/L (98-107); CHOLESTEROL LEVEL 108.0 MG/DL (<200); CHOLESTEROL RISK RATIO 2.44 (<5); CREATININE FOR GFR 1.01 MG/DL (0.70-1.30); GLOMERULAR FILTRATION RATE 82.0 (>49); LDL CHOLESTEROL 38.3 MG/DL (<100); NON-HDL-C 63.9 MG/DL; POTASSIUM SERUM 4.1 MMOL/L (3.5-5.1); SODIUM LEVEL 141.0 MMOL/L (136-145); TRIGLYCERIDES LEVEL 128.0 MG/DL (<150)
[2024-12-18 19:14] LABS: ESTIMATED AVERAGE GLUCOSE 111.0 MG/DL (60-110)
== END ==
LOC: M PLALAB 15:59
PROVIDERS: ATTEND Student in an Organized Health Care Education/Training Program
DX: Z00.00 Encounter for general adult medical examination without abnormal findings (principal); E78.00 Pure hypercholesterolemia, unspecified; R03.0 Elevated blood-pressure reading, without diagnosis of hypertension; Z79.899 Other long term (current) drug therapy